=== PATIENT | male | born 1950 | race African-American/Black ===

== ENCOUNTER 2016-12-09 10:53 | Emergency (ER) | payer MEDICARE | END 2016-12-09 11:53 | disposition home or self-care (01) | LOC: D.ER 10:53 | DX: K08.89 Other specified disorders of teeth and supporting structures (principal); I10 Essential (primary) hypertension; E11.9 Type 2 diabetes mellitus without complications ==

== ENCOUNTER 2017-03-22 08:04 | Emergency (ER) | payer MEDICARE | END 2017-03-22 09:01 | disposition home or self-care (01) | LOC: D.ER 08:04 | DX: K02.9 Dental caries, unspecified (principal); K08.89 Other specified disorders of teeth and supporting structures; E11.9 Type 2 diabetes mellitus without complications; I10 Essential (primary) hypertension ==

== ENCOUNTER 2018-01-20 10:57 | Outpatient (CLI) | payer MEDICARE ==
[~2018-01-20] VITALS: Ht 182.9 cm; Wt 122.7 kg
--- NOTE | ~2018-01-20 | HEMODYNAMI ---
PATIENT:NICOL BERRIOS SR MEDICAL RECORD: [id number] : 52 LOCATION:[facility] ADMISSION DATE: 01/20/18 Generatedon:01/20/201814:28 Patient name: NICOL BERRIOS Patient #: [id number] SSN: D OB: 1950 Date of study: 01/20/2018 Page: Of Hemodynamic Procedure Report Patient Data Patient Demographics Procedure consent was obtained First Name: NICOL Gender: Male Last Name: YASH Suffix: Sr Patient #: [id number] : 1950 Age: 67 year(s) Accession #: Race: Black [id number] Additional ID: [id number] Contact details Address: [address] [place] [address] [address] State: [place] City: [place] Zip code: [address] Past Medical History Allergies: No known allergies Admission Admission Data Admission Date: 01/20/2018 Admission Time: 10:57 Height (in.): 72 BSA: 2.44 (m2) Height (cm.): 182.88 BMI: 37.3 (kg/m2) Weight (lbs.): 275 Weight (kg.): 124.74 Lab Results Lab Result Date: 01/20/2018 Lab Result Time: 0:00 Biochemistry Name Units Result Min Max BUN mg/dl 8 --(*---)-- 7 18 Creatinine mg/dl 1 --(--*-)-- 0.6 1.3 CBC Name Units Result Min Max Hemoglobin g/dl 12.4 *-(----)-- 13.5 17.5 Procedure Procedure Types Cath Procedure Diagnostic Procedure C [facility] w/Coronaries Sedation Charges Moderate Sedation up to 45 minutes PCI Procedure Coronary Stent Coronary Stent Initial Procedure Description Procedure Date Procedure Date: 01/20/2018 Procedure Start Time: 13:43 Procedure End Time: 14:25 Procedure Staff Name Function Bret Valencia MD Performing Physician Ibeth Dunlap RT Monitor Nagi Noguera RT Scrub Ruba Dolan RN Nurse Procedure Data Cath Procedure Fluoroscopy Diagnostic fluoroscopy Total fluoroscopy Time: 9.2 time: 9.2 min min Diagnostic fluoroscopy Total fluoroscopy dose: dose: 2103 mGy 2103 mGy Contrast Material Contrast Material Type Amount (ml) Isovue 300 166 Entry Location Entry Primary Successful Side Size Upsize Upsize Entry Closure Succes sful Closure Location (Fr) 1 (Fr) 2 (Fr) Remarks Device Remarks Radial Right 6 Fr artery Short Femoral Right 6 Fr Exoseal artery Short Estimated blood loss: 10 ml Diagnostic catheters Device Type Used For End Catheter Placement DIAGNOSTIC [place] 110cm 5 Procedure Fr catheter ([id number]) Procedure Complications No complications Procedure Medications Medication Administration Route Dosage 0.9% NaCl I.V. 100 ml/hr Oxygen etCO2 Nasal cannula 2 l/min Lidocaine 2% added to field 20 Heparin Flush Bag added to field 2 bags (1000units/500ml NS) Radial Cocktail added to field 1 syringe (Verapomil 2mg/Nitro 400mcg/Heparin 1500units) Versed I.V. 2 mg Fentanyl I.V. 50 mcg Versed I.V. 2 mg Fentanyl I.V. 50 mcg Versed I.V. 1 mg Heparin Bolus I.V. 4000 units Integrilin (Bolus I.V. 11.3 ml 2mg/ml) Plavix P.O. 600 mg Hemodynamics Rest BSA: 2.44 (m2) HGB: 12.4 (g/dl) O2 Consumption: Estimated: 291.82 (ml/min) O2 Co nsumption indexed: Estimated:119.6 (ml/min/m) Heart Rate: 78 (bpm) Pressure Samples Time Site Value (mmHg) Purpose Heart Use Rate(bpm) 13:47 LV 164/-27,7 Snapshot 92 13:47 AO 114/86(99) Pullback 94 13:47 LV 126/5,-1 Pullback 94 Gradients Valve Time Site 1 Site 2 Mean SEP/DFP Peak To Heart Use (mmHg) (sec/min) Peak Rate (mmHg) (bpm) Aortic 13:47 LV AO 9 19 12 94 126/5,-1 114/86(99) Calculations Valve P-P Mean Valve Index Valve Source Name Gradient Area Flow (cm2) Aortic 12 9 12 9 Snapshots Pre Cath Intra NCS Post Cath Vital Signs Time Heart Resp SPO2 etCO2 NIBP (mmHg) Rhythm Pain Sedation Rate (ipm) (%) (mmHg) Status Level (bpm) 13:11:13 75 21 96 31.4 182/109(145) NSR 0 (11) 10(A) , No pain 13:16:00 71 22 95 29.9 158/90(132) NSR 0 (11) 10(A) , No pain 13:20:45 82 21 98 16.4 140/98(121) NSR 0 (11) 10(A) , No pain 13:26:37 80 22 95 45.6 158/91(123) NSR 0 (11) 10(A) , No pain 13:31:21 77 17 98 27.6 161/88(117) NSR 0 (11) 10(A) , No pain 13:36:02 68 18 95 34.4 151/93(120) NSR 0 (11) 10(A) , No pain 13:40:43 84 16 96 32.2 146/102(111) NSR 0 (11) 10(A) , No pain 13:45:21 79 17 100 38.1 155/94(116) NSR 0 (11) 10(A) , No pain 13:49:54 88 20 98 29.1 150/112(142) NSR 0 (11) 9(A) , No pain 13:54:36 88 17 97 41.9 145/88(112) NSR 0 (11) 9(A) , No pain 13:59:19 88 20 97 28.4 156/87(124) NSR 0 (11) 9(A) , No pain 14:04:04 88 16 98 47.8 156/95(113) NSR 0 (11) 9(A) , No pain 14:08:50 89 15 96 50.1 162/96(127) NSR 0 (11) 9(A) , No pain 14:13:37 78 21 97 30.6 153/100(128) NSR 0 (11) 9(A) , No pain 14:18:22 78 21 97 38.9 154/92(121) NSR 0 (11) 9(A) , No pain 14:23:07 92 20 96 44.8 151/94(126) NSR 0 (11) 10(A) , No pain Medications Time Medication Route Dose Verified Delivered Reason Not es Effectiveness by by 12:58:43 0.9% NaCl I.V. 100 Bret Ruba used for ml/hr [place] [facility] procedure MD VALDES 12:58:51 Oxygen etCO2 2 l/min Bret Ruba used for Nasal [facility] procedure cannula MD VALDES 12:58:58 Lidocaine 2% added 20ml Bret Qeuen for local to vial [facility] anesthetic field MD IGLESIAS 12:59:03 Heparin Flush added 2 bags Bret Queen used for Bag to [facility] procedure (1000units/500ml field MD IGLESIAS NS) 13:10:50 Radial Cocktail added 1 Bret Queen used for (Verapomil to syringe [facility] procedure 2mg/Nitro field MD IGLESIAS 400mcg/Heparin 1500units) 13:31:51 Versed I.V. 2 mg Bret Ruba for sedation [facility] Dolan MD RN 13:31:55 Fentanyl I.V. 50 mcg Bret Ruba for sedation [facility] Dolan MD RN 13:42:42 Versed I.V. 2 mg Bret Ruba for sedation [facility] D[facility] MD, RN 13:42:49 Fentanyl I.V. 50 mcg Bret Ruba for sedation [facility] D[facility] MD RN 13:46:31 Versed I.V. 1 mg Bret Ruba for sedation [facility] D[facility] MD RN 14:00:58 Heparin Bolus I.V. 4000 Bret Ruba for jessee ified units [facility] anticoagulation with Dr. MD VALDES [place] 14:03:22 Integrilin I.V. 11.3 ml Bret Ruba for was anaya (Bolus 2mg/ml) [facility] anticoagulation 8.7 mL MD VALDES 14:06:41 Plavix P.O. 600 mg Bret Ruba for [facility] antiplatelet RN therapy Procedure Log Time Note 12:56:53 Nagi Noguera RT(R) sent for patient. Start room use. 12:56:54 Time tracking: Regular hours (M-F 7:00 - 5:00) 12:56:59 Plan of Care:Hemodynamics will remain stable., Cardiac rhythm will remain stable., Comfort level will be maintained., Respiratory function will remain adequate., Patient/ family verbilizes understanding of procedure., Procedure tolerated without complication., Recovers from procedure without complications.. 12:57:02 Signed procedure consent form obtained from patient. 12:57:53 Patient allergic to No known allergies 12:58:43 0.9% NaCl 100 ml/hr I.V. was administered by Ruba Dolan RN; used for procedure; 12:58:51 Oxygen 2 l/min etCO2 Nasal cannula was administered by Ruba Dolan RN; used for procedure; 12:58:58 Lidocaine 2% 20ml vial added to field was administered by Bret Valencia MD; for local anesthetic; 12:59:03 Heparin Flush Bag (1000units/500ml NS) 2 bags added to field was administered by Bret Valencia MD; used for procedure; 13:02:11 Patient received from Pre/Post Procedure Room to CCL 1 Alert and oriented. Tansferred to table in Supine position. 13:02:12 Warm blankets applied, and tammy hugger turned on for patient comfort. 13:02:12 Correct patient and procedure confirmed by team. 13:02:13 ECG and BP/O2 sat monitors applied to patient. 13:09:22 Vital chart was started 13:10:50 Radial Cocktail (Verapomil 2mg/Nitro 400mcg/Heparin 1500units) 1 syringe added to field was administered by Bret Valencia MD; used for procedure; 13:16:35 Baseline sample Acquired. 13:16:42 Rhythm: sinus rhythm 13:16:42 Full Disclosure recording started 13:16:49 H&P Date Dictated: 01/15/2018 Within 30 days and on chart., H&P Addendum completed by physician on day of procedure. (MUST COMPLETE FOR ALL OUTPATIENTS). 13:16:50 Pre-procedure instructions explained to patient. 13:16:50 Pre-op teaching completed and patient verbalized understanding. 13:16:51 Family in patients room. 13:16:53 Patient NPO since Midnight. 13:17:14 Is the patient allergic to Iodine/contrast media? No. 13:17:16 Is patient on blood thinner?No 13:17:19 Patient diabetic? Yes. 13:17:20 If diabetic: On Metformin? Yes 13:17:24 If on Metformin: Last Dose? 01/18/2018 13:17:28 Previous problem with sedation/anesthesia? No ? 13:17:29 Snore? Yes 13:17:30 Sleep apnea? Yes 13:17:31 Deviated septum? No 13:17:32 Opens mouth fully? Yes 13:17:35 Opens mouth fully? Yes 13:17:36 Sticks out tongue? Yes 13:17:45 Airway obstruction? Yes ASBESTOSIS 13:17:49 Dentures? Yes IN TIGHT 13:17:52 Modified Jorge's test Ulnar < 7 seconds 13:17:56 Patient pain scale 0/10 ?. 13:18:05 SHORTNESS OF BREATH 13:18:11 IV patent on arrival in left hand with 0.9% NaCl at [facility]. 13:18:37 Lab Result : BUN 8 mg/dl 13:18:37 Lab Result : Hemoglobin 12.4 g/dl 13:18:37 Lab Result : Creatinine 1 mg/dl 13:18:40 Lab results completed and on chart. 13:18:44 Right Radial & Right Groin area was prepped with chlora-prep and draped in sterile fashion 13:19:08 Patient Height : 72 inches 13:19:12 Patient Weight : 275 lbs 13:20:42 Use device set Radial Dx or PCI 13:20:43 ACIST Syringe (85788) opened to sterile field. 13:20:45 Bag Decanter (2002S) opened to sterile field. 13:20:46 ACIST Hand Control (23136) opened to sterile field. 13:20:47 ACIST Manifold (93384) opened to sterile field. 13:20:48 Tegaderm 4 x 4 (1626W) opened to sterile field. 13:20:51 Medline Cath Pack ([id number]) opened to sterile field. 13:20:52 DIAGNOSTIC WIRE .035 260cm J wire (730282) opened to sterile field. 13:20:52 MBrace Wrist Support ([id number]) opened to sterile field. 13:20:54 SHEATH 6Fr Prelude Radial ([id number]) opened to sterile field. 13:31:41 --------ALL STOP TIME OUT------ 13:31:42 Final Timeout: patient, procedure, and site verified with staff and physician. All members of the team are in agreement. 13:31:44 Right Radial & Right Groin site verified by team. 13:31:46 Physical assessment completed. ASA score P 2 - A patient with mild systemic disease as per Bret Valencia MD. 13:31:49 Sedation plan: IV Moderate Sedation Medication:Versed, Fentanyl 13::51 Versed 2 mg I.V. was administered by Ruba Dolan RN; for sedation; 13::55 Fentanyl 50 mcg I.V. was administered by Ruba Dolan RN; for sedation; 13:42:42 Versed 2 mg I.V. was administered by Ruba Dolna RN; for sedation; 13:42:49 Fentanyl 50 mcg I.V. was administered by Ruba Dolan RN; for sedation; 13:43:08 Zero performed for pressure channel P1 13:43:18 Procedure started. 13:43:37 Local anesthetic to right radial artery with Lidocaine 2% by Bret Valencia MD.INITIAL ACCESS ONLY 13:44:23 A 6 Fr Short sheath was inserted into the Right Radial artery 13:44:50 A DIAGNOSTIC [place] 110cm 5 Fr catheter (153838) was advanced over the wire and used for Procedure. 13:46:15 LV gram done using PADILLA 13:46:17 Injector settings: Ml/sec: 5, Volume: 15, 13:46:31 Versed 1 mg I.V. was administered by Ruba Dolan RN; for sedation; 13:47:29 LV hemodynamics recorded. 13:47:53 EF : 45 % 13:49:15 RCA angiography performed. 13:51:44 LCA angiography performed. 13:51:45 Catheter exchanged over wire. 13:52:49 GUIDE 6FR EBU 3.5 catheter (PK1HFE07) opened to sterile field. 13:52:58 6 Fr EBU 3.5 guide catheter was inserted over the wire 13:58:34 LCA angiography performed. 13:58:41 Guide catheter removed. 14:00:14 SHEATH 6FR [place] (XWX105) opened to sterile field. 14:00:28 WILL PROCEED TO GO FEMORAL TO FIX RCA 14:00:38 Local anesthetic to right femoral artery with Lidocaine 2% by Bret Valencia MD.ADDITIONAL ACCESS 14:00:45 A 6 Fr Short sheath was inserted into the Right Femoral artery 14:00:58 Heparin Bolus 4000 units I.V. was administered by Ruba Dolan RN; for anticoagulation; verified with Dr. Bundy 14:01:03 INFLATOR Merit Live Life 360Lorne (MT6221) opened to sterile field. 14:01:04 WHISPER 300cm guide wire ([id number]) opened to sterile field. 14:01:04 GUIDE 6FR HS I catheter (LA6HSI) opened to sterile field. 14:02:26 6 Fr HS 1 guide catheter was inserted over the wire 14:03:22 Integrilin (Bolus 2mg/ml) 11.3 ml I.V. was administered by Ruba Dolan RN; for anticoagulation; wasted 8.7 mL 14:05:36 WHISPER 300 wire advanced. 14:06:33 Wire advanced across lesion. 14:06:41 Plavix 600 mg P.O. was administered by Ruba Dolan RN; for antiplatelet therapy; 14:10:34 Place stent Inflation Number: 1 A NOY RX 3.5 x 26 stent ([id number]) was prepped and advanced across the Dist RCA. The stent was deployed at 14 TREVOR for 0:15 (min:sec). 14:11:13 Inflation number: 2 The stent balloon was then re-inflated across the Dist RCA to 14 TREVOR for 0:05 (min:sec). 14:11:24 Stent catheter was removed intact over wire. 14:14:48 Place stent Inflation Number: 1 A NOY RX 3.5 x 26 stent ([id number]) was prepped and advanced across the Mid RCA. The stent was deployed at 14 TREVOR for 0:20 (min:sec). 14:15:01 Stent catheter was removed intact over wire. 14:18:20 Place stent Inflation Number: 2 A NOY OTW 3.5 x 18 stent ([id number]) was prepped and advanced across the Mid RCA. The stent was deployed at 14 TREVOR for 0:15 (min:sec). 14:18:59 Stent catheter was removed intact over wire. 14:19:00 Wire removed. 14:19:00 Guide catheter removed. 14:19:07 EXOSEAL 6Fr (EX600) opened to sterile field. 14:19:47 Sheath removed intact; hemostasis achieved with Exoseal to the Right Femoral artery. 14:20:00 Procedure ended.(Physican Out) 14:20:14 TR BAND Large ([id number]) opened to sterile field. 14:20:22 Fluoroscopy time 09.20 minutes. 14:20:38 Contrast amount:Isovue 300 166ml. 14:20:45 Fluoroscopy dose: 2103 mGy 14:20:45 Flurop Dose total: 2103 14:20:47 Sharps counted by scrub and verified by R.N. 14:20:50 Post-op/insertion site Right Femoral artery dressed using a 4 x 4 and Tegaderm. 14:20:54 Post right femoral artery:stable, soft, clean and dry 14:23:42 Post-procedure physical assessment completed. ASA score P 2 - A patient with mild systemic disease as per Bret Valencia MD. 14:23:45 Post procedure rhythm: unchanged. 14:23:47 Estimated blood loss: 10 ml 14:23:49 Post procedure instruction explained to patient.Patient verbalizes understanding. 14:23:49 Patient needs reinforcement of post procedure teaching. 14:24:31 Procedure type changed to Cath procedure, Diagnostic procedure, LHC, LHC w/Coronaries, Sedation Charges, Moderate Sedation up to 45 minutes, PCI procedure, Coronary Stent, Coronary Stent Initial 14:24:38 TR band inflated with 11cc of air. 14:25:07 Procedure and supply charges have been captured, reviewed, submitted and are correct. 14:25:09 Procedure Complication : No complications 14:25:11 Vital chart was stopped 14:25:11 See physician's report for complete and final results. 14:25:13 Report given to Pre/Post Procedure Room. 14:25:21 Patient transfered to Pre/Post Procedure Room with Bed. 14:25:23 Procedure ended. 14:25:23 Full Disclosure recording stopped 14:25:27 End room use (Document Last) Intervention Summary Intervention Notes Time ActionType Lesion and Equipment Used Action# Pressure Duration Attributes 14:10:34 Place stent Dist RCA NOY RX 3.5 x 1 14 00:15 26 stent ([id number]) 14:11:13 Reinflate Dist RCA NOY RX 3.5 x 2 14 00:05 stent 26 stent balloon ([id number]) 14:14:48 Place stent Mid RCA NOY RX 3.5 x 1 14 00:20 26 stent ([id number]) 14:18:20 Place stent Mid RCA NOY OTW 3.5 x 2 14 00:15 18 stent ([id number]) Device Usage Item Name Manufacture Quantity Catalog Number Hospital Part Current Minimal Lot# / Charge Number Stock Stock Serial# Code ACIST Syringe Acist 1 08088 262792 245166 572625 20 (26635) Medical Systems [facility] Bag Decanter Microtek 1 2001S 562052 76736 726768 5 (2001S) Medical Inc. ACIST Hand Acist 1 40326 360182 044365 334105 5 Control (42237) Medical Systems Inc ACIST Manifold Acist 1 54815 348559 825903 418321 5 (07240) Medical Systems Inc Tegaderm 4 x 4 3M 1 1626W 143909 301049 819273 5 (1626W) Medline Cath Medline 1 [id number] 878288 05330 824486 5 Pack ([id number]) DIAGNOSTIC WIRE St Dwight 1 701378 545723 674289 922596 30 .035 260cm J wire (983286) MBrace Wrist Advanced 1 140-0250-00 963978 10357 442029 5 Support Vascular ([id number]) Dynamics SHEATH 6Fr Merit 1 [id number] 136163 058360 171219 5 Prelude Radial Medical ([id number]) DIAGNOSTIC Terumo 1 40-3303 773946 081203 030089 5 [place] 110cm 5 Fr catheter (046476) GUIDE 6FR EBU Medtronic 1 [id number] 973052 13746 697684 3 3.5 catheter ([id number]) SHEATH 6FR Terumo 1 HXA481 948260 128150 512506 40 [place] (RGG687) INFLATOR Merit Merit 1 PY1415 875247 233545 835708 15 ADENTS [facility] (JR9793) WHISPER 300cm Vinson 1 [id number] 335191 519407 004180 5 guide wire Vascular ([id number]) GUIDE 6FR HS I Medtronic 1 LA6HSI 056618 17310 224914 1 catheter (LA6HSI) NOY RX 3.5 x Medtronic 2 [id number] 285105 6057365 882053 5 [id number] 26 stent [id number] ([id number]) NOY OTW 3.5 x Medtronic 1 [id number] 190855 6303622 480669 5 [id number] 18 stent ([id number]) EXOSEAL 6Fr Cardinal 1 EX600 112708 360341 841478 10 (EX600) Health TR BAND Large Terumo 1 [id number] 475547 872431 992354 40 ([id number]) Signature Audit [place] Stage Time Signature Unsigned Intra-Procedure 01/20/2018 Ibeth Dunlap 2:28:53 PM RT(R) Signatures Monitor : Ibeth Dunlap Signature : RT Date : Time : [id number] [place] [address]
--- NOTE | ~2018-01-20 | OP ---
PATIENT NAME: NICOL BERRIOS SR MEDICAL RECORD: [id number] :52 LOCATION:D.CAT ADMISSION DATE: SURGEON: GIUSEPPE LUCAS MD DATE OF OPERATION: 01/20/2018 PROCEDURES: Left heart catheterization, selective coronary angiography, right femoral artery approach. CATHETERS: A 5-[place] sheath, 5/4 left and right Deepak, 5/4 pig. The procedure was well tolerated. The patient was returned to the uribe. Sheath was removed. ExoSeal device was placed. FINDINGS: Left ventriculography in 30-degree PADILLA view shows global LV hypokinesis with reduced EF. Estimated EF 40%. CORONARY ANATOMY: LEFT MAIN: Left main is free of disease. LAD: Patent down to the apex. The very distal tip of the apex has about diffuse 70% stenosis, not amenable to intervention. CIRCUMFLEX: Circumflex has one large OM almost ramoid territory branch about a 30% stenosis at a bend. Circumflex itself shows luminal irregularities. RIGHT CORONARY: It has severe diffuse typical diabetic disease in the RV branch down to the bifurcation of PD and PL branches. IMPRESSION AND PLAN: Intervention the right coronary momentarily. DESCRIPTION OF PROCEDURE: A 5-[place] sheath was exchanged for a 6-[place] sheath. Hockey stick guide catheter provided good catheter support followed by 300-cm Whisper wire which was placed across the diffuse stenosis down this portion of vessel. Stents deployed were 3.5 x 26, 3.5 x 26, and 3.5 x 18; all Delbert drug-eluting stents up to 14 atmospheres. Final angiography shows excellent resolution of severe diffuse stenosis of 80% with no significant residual. GAYATRI flow was 3 throughout the procedure. Integrilin was used during the case. Sheath was closed with ExoSeal device. Plavix was loaded in the lab. TRANSINT:[id number] Voice Confirmation ID: [id number] DOCUMENT ID: [id number] GIUSEPPE LUCAS MD CC: [id number] DICTATION DATE: 01/20/18 1431 AIR DIRECTOR: 01/20/18 1622 DEP CLI 01/20/18 [facility] [address] [place] [address]
[2018-01-20 12:26] VITALS: BP 165/94
[2018-01-20 12:32] VITALS: Ht 182.9 cm; Wt 122.7 kg
[2018-01-20] MEDS ORDERED: ZESTRIL40 MG PO (12:35)
[2018-01-20] MEDS ORDERED: FLOMAX0.4 MG PO (12:35)
[2018-01-20 12:36] LABS: BASOPHILS 0.2 % (0-2); EOSINOPHILS 1.5 % (0-7); HEMATOCRIT 36.9 % (42.0-54.0); HEMOGLOBIN 12.4 g/dL (13.5-17.5); IMMATURE GRANULOCYTES 0.2 % (0-5); LYMPHOCYTES 37.5 % (15-50); MCHC 33.6 g/dL (31.0-37.0); MCV 89.1 fL (80.0-100.0); MEAN PLATELET VOLUME 8.7 fL (7.4-10.4); MONOCYTES 9.5 % (2-11); NEUTROPHILS 51.1 % (40-80); PLATELET COUNT 241 10x3/uL (130-400); RBC 4.14 10x6/uL (4.20-6.10); RDW 15.4 % (11.5-14.5); WBC 5.4 10x3/uL (4.8-10.8)
[2018-01-20] MEDS ORDERED: GLIPIZIDE10 MG PO (12:36)
[2018-01-20] MEDS ORDERED: FUROSEMIDE20 MG PO (12:36)
[2018-01-20] MEDS ORDERED: GLUCOPHAGE500 MG PO (12:37)
[2018-01-20] MEDS ORDERED: PRAVACHOL40 MG PO (12:37)
[2018-01-20] MEDS ORDERED: GLUCOPHAGE1000 MG PO (12:38)
[2018-01-20] MEDS ORDERED: RANEXA500 MG PO (12:38)
[2018-01-20 12:43] LABS: CALC OSMOLALITY 283 mosm/kg (275-300); CALCIUM 8.8 mg/dL (8.5-10.1); CARBON DIOXIDE 27.5 mmol/L (21.0-32.0); CHLORIDE - SERUM 104 mmol/L (98-107); GLUCOSE 190 mg/dL (74-106); POTASSIUM - SERUM 3.5 mmol/L (3.5-5.1); SODIUM 141 mmol/L (136-145); UREA NITROGEN 8 mg/dL (7-18); eGFR NON AFRICAN AMERICAN 79 mL/min (90-120)
== END 2018-01-20 18:55 | disposition home or self-care (01) ==
LOC: D.CATH 10:57
PROVIDERS: Internal Medicine Interventional Cardiology
DX: I25.119 Atherosclerotic heart disease of native coronary artery with unspecified angina pectoris (principal); Z01.812 Encounter for preprocedural laboratory examination; E11.9 Type 2 diabetes mellitus without complications
CPT/HCPCS: 93458; C9600

== ENCOUNTER 2018-09-29 01:44 | Inpatient (IN) | payer MEDICARE ==
[~2018-09-29] VITALS: Ht 182.9 cm; Wt 120.5 kg
[2018-09-29] VITALS (7 sets, daily range): BP systolic 129–177; BP diastolic 58–109; Ht 182.9 cm; Wt 120.5 kg
--- NOTE | ~2018-09-29 | HEMODYNAMI ---
PATIENT:NICOL BERRIOS SR MEDICAL RECORD: [id number] : 52 LOCATION:[facility] D.2134 [facility]# [id number] ADMISSION DATE: 09/29/18 Generatedon:09/30/201810:10 Patient name: NICOL BERRIOS Patient #: [id number] SSN: D OB: 1950 Date of study: 09/30/2018 Page: Of Hemodynamic Procedure Report Patient Data Patient Demographics Procedure consent was obtained First Name: NICOL Gender: Male Last Name: YASH Suffix: Sr Patient #: [id number] : 1950 Age: 67 year(s) Accession #: Race: Black [id number] Additional ID: [id number] Contact details Address: [address] [place] [address] ROAD State: [place] City: [place] Zip code: [address] Past Medical History Allergies: No known allergies Admission Admission Data Admission Date: 09/29/2018 Admission Time: 4:54 Room #: D.2134 Weight (lbs.): 264.56 Weight (kg.): 120 Lab Results Lab Result Date: 09/30/2018 Lab Result Time: 0:00 Biochemistry Name Units Result Min Max BUN mg/dl 15 --(--*-)-- 7 18 Creatinine mg/dl 1.2 --(---*)-- 0.6 1.3 eGFR ml/min 78 *-(----)-- 90 120 AM CBC Name Units Result Min Max Hematocrit % 36.8 *-(----)-- 42 54 Hemoglobin g/dl 12.4 *-(----)-- 13.5 17.5 Procedure Procedure Types Cath Procedure Diagnostic Procedure [facility] w/Coronaries FFR/IVUS FFR Initial Sedation Charges Moderate Sedation up to 15 minutes PCI Procedure Coronary Stent Coronary Stent Initial Procedure Description Procedure Date Procedure Date: 09/30/2018 Procedure Start Time: 9:38 Procedure End Time: 10:07 Procedure Staff Name Function Alexandru Isbell MD Performing Physician Ruba Dolan RN Nurse Jose Overton RT Scrub Sherie Chester RT Scrub Ibeth Dunlap RT Monitor Procedure Data Cath Procedure Fluoroscopy Diagnostic fluoroscopy Total fluoroscopy Time: 9.9 time: 9.9 min min Diagnostic fluoroscopy Total fluoroscopy dose: dose: 2451 mGy 2451 mGy Contrast Material Contrast Material Type Amount (ml) Isovue 300 168 Entry Location Entry Primary Successful Side Size Upsize Upsize Entry Closure Succes sful Closure Location (Fr) 1 (Fr) 2 (Fr) Remarks Device Remarks Femoral Right 5 Fr 6 Fr Exoseal artery Short Estimated blood loss: 10 ml Diagnostic catheters Device Type Used For End Catheter Placement MULTIPACK Pigtail 5 Fr Procedure catheter MULTIPACK JL 4.0 5Fr Procedure catheter MULTIPACK 3DRC 5Fr Procedure catheter Procedure Complications No complications Procedure Medications Medication Administration Route Dosage 0.9% NaCl I.V. 100 ml/hr Oxygen etCO2 Nasal cannula 2 l/min Lidocaine 2% added to field 20 Heparin Flush Bag added to field 2 bags (1000units/500ml NS) Versed I.V. 2 mg Fentanyl I.V. 50 mcg Heparin Bolus I.V. 5000 units Fentanyl I.V. 50 mcg Plavix P.O. 75 mg Hemodynamics Rest HGB: 12.4 (g/dl) Heart Rate: 100 (bpm) Snapshots Pre Cath Intra NCS Post Cath Vital Signs Time Heart Resp SPO2 etCO2 NIBP (mmHg) Rhythm Pain Sedation Rate (ipm) (%) (mmHg) Status Level (bpm) 9:19:40 98 17 97 12 167/102(142) NSR 0 (11) 10(A) , No pain 9:24:13 91 18 100 14 185/94(110) NSR 0 (11) 10(A) , No pain 9:28:39 93 16 100 3.7 129/95(113) NSR 0 (11) 10(A) , No pain 9:33:38 83 14 97 23.2 Measuring NSR 0 (11) 10(A) , No pain 9:33:48 69 15 96 27.7 147/112(130) NSR 0 (11) 10(A) , No pain 9:38:47 84 17 98 16.4 Measuring NSR 0 (11) 10(A) , No pain 9:38:53 74 17 98 12.7 150/107(125) NSR 0 (11) 10(A) , No pain 9:43:07 89 15 98 30 130/96(125) NSR 0 (11) 9(A) , No pain 9:47:24 81 16 98 29.2 149/108(128) NSR 0 (11) 9(A) , No pain 9:51:48 83 16 96 32.9 147/90(122) NSR 0 (11) 9(A) , No pain 9:56:14 85 15 99 17.9 152/86(118) NSR 0 (11) 9(A) , No pain 10:00:38 88 18 98 32.2 154/93(122) NSR 0 (11) 10(A) , No pain 10:05:05 85 19 95 32.2 159/93(117) NSR 0 (11) 10(A) , No pain Medications Time Medication Route Dose Verified Delivered Reason Notes Effectiveness by by 9:18:25 0.9% NaCl I.V. 100 Alexandru Ruba used for ml/hr Sukhi Dolan reconciliation specialist 9:18:31 Oxygen etCO2 2 Alexandru Ruba used for Nasal l/min Sukhi Dolan procedure cannula RN 9:18:37 Lidocaine 2% added 20ml Alexandru Alexandru for local to vial Sukhi Isbell MD anesthetic field 9:18:41 Heparin Flush added 2 Alexandru Alexandru used for Bag to bags Sukhi Isbell MD procedure (1000units/500ml field NS) 9:36:00 Versed I.V. 2 mg Alexandru Ruba for sedation Sukhi Dolan RN 9:36:06 Fentanyl I.V. 50 Alexandru Ruba for sedation mcg Sukhi Dolan RN 9:41:17 Fentanyl I.V. 50 Alexandru Ruba for sedation mcg Sukhi Dolan RN 9:44:59 Heparin Bolus I.V. 5000 Alexandru Ruba for verifi ed units Sukhi Dolan anticoagulation with Dr. KEISHA Isbell 9:46:04 Plavix P.O. 75 mg Alexandru Ruba for Sukhi Dolan antiplatelet RN therapy Procedure Log Time Note 9:01:01 Signed procedure consent form obtained from patient. 9:01:03 Diagnostic Cath status Urgent 9:01:04 Time tracking: Regular hours (M-F 7:00 - 5:00) 9:01:10 Plan of Care:Hemodynamics will remain stable., Cardiac rhythm will remain stable., Comfort level will be maintained., Respiratory function will remain adequate., Patient/ family verbilizes understanding of procedure., Procedure tolerated without complication., Recovers from procedure without complications.. 9:01:13 Perez Cloud RT(R) (CV) sent for patient. Start room use. 9:03:25 Patient allergic to No known allergies 9:04: Lab Result : BUN 15 mg/dl 9:: Lab Result : Creatinine 1.2 mg/dl 9:: Lab Result : Hemoglobin 12.4 g/dl 9:: Lab Result : eGFR AM 78 ml/min 9:04: Lab Result : Hematocrit 36.8 % 9:05:11 Patient Weight : 264.56 lbs 9:12:54 Patient received from Med II to CCL 1 Alert and oriented. Tansferred to table in Supine position. 9:12:55 Warm blankets applied, and tammy hugger turned on for patient comfort. 9:12:55 Correct patient and procedure confirmed by team. 9:12:56 ECG and BP/O2 sat monitors applied to patient. 9:18:17 Vital chart was started 9:18:25 0.9% NaCl 100 ml/hr I.V. was administered by Ruba Dolan RN; used for procedure; 9:18:31 Oxygen 2 l/min etCO2 Nasal cannula was administered by Ruba Dolan RN; used for procedure; 9:18:37 Lidocaine 2% 20ml vial added to field was administered by Alexandru Isbell MD; for local anesthetic; 9:18:41 Heparin Flush Bag (1000units/500ml NS) 2 bags added to field was administered by Alexandru Isbell MD; used for procedure; 9:21:07 Baseline sample Acquired. 9:21:09 Rhythm: sinus rhythm 9:21:14 Full Disclosure recording started 9:21:15 Pre-procedure instructions explained to patient. 9:21:16 Pre-op teaching completed and patient verbalized understanding. 9:21:17 Family in patients room. 9:21:19 Patient NPO since Midnight. 9:21:24 Is patient on blood thinner?Yes 9:21:33 PRELOADED ON PLAVIX 9:21:35 Patient diabetic? No. 9:21:39 Previous problem with sedation/anesthesia? No ? 9:21:40 Snore? Yes 9:21:41 Sleep apnea? Yes 9:21:41 Deviated septum? No 9:21:42 Opens mouth fully? Yes 9:21:43 Sticks out tongue? Yes 9:21:45 Airway obstruction? No ? 9:21:48 Dentures? Yes PARTIAL IN 9:21:52 Pre procedure: right dorsailis pedis pulse 1+ Palpable, but thready & weak; easily obliterated 9:21:55 Patient pain scale 0/10 ?. 9:22:02 IV patent on arrival in right antecubital with 0.9% NaCl at [facility]. 9:22:04 Lab results completed and on chart. 9:22:07 Right groin area was prepped with chlora-prep and draped in sterile fashion 9:22:08 Alarms reviewed by R. N. 9:22:08 Sharps counted by scrub and verified by R.N. 9:22:11 Use device set Femoral Dx 9:22:11 ACIST Syringe (79857) opened to sterile field. 9:22:12 Bag Decanter (2002S) opened to sterile field. 9:22:13 ACIST Hand Control (32032) opened to sterile field. 9:22:13 ACIST Manifold (51689) opened to sterile field. 9:22:14 Tegaderm 4 x 4 (1626W) opened to sterile field. 9:22:16 Medline Cath Pack ([id number]) opened to sterile field. 9:22:17 DIAGNOSTIC Multipack 5Fr catheter set ([id number]) opened to sterile field. 9:22:21 SHEATH 5FR [place] ([id number]) opened to sterile field. 9:22:21 EMERALD Guide Wire (323-545) opened to sterile field. 9:35:20 --------ALL STOP TIME OUT------ 9:35:20 Final Timeout: patient, procedure, and site verified with staff and physician. All members of the team are in agreement. 9:35:21 Right groin site verified by team. 9:35:25 Fire Safety Assessment: A--An alcohol-based skin anteseptic being used preoperatively., C--Open oxygen or nitrous oxide is being used., D--An ESU, laser, or fiber-optic light is being used. 9:35:29 Physical assessment completed. ASA score P 2 - A patient with mild systemic disease as per Alexandru Isbell MD. 9:35:35 2) 60-89 Mildly reduced kidney function, and other findings (as for stage 1) point to kidney disease. 9:35:40 Maximum allowable contrast does (3.7 X eGFR X 0.75)216 ml. 9:35:43 Sedation plan: IV Moderate Sedation Medication:Versed, Fentanyl 9:36:00 Versed 2 mg I.V. was administered by Ruba Dolan RN; for sedation; 9:36:06 Fentanyl 50 mcg I.V. was administered by Ruba Dolan RN; for sedation; 9:38:22 Procedure started. 9:38:27 Local anesthetic to right femoral artery with Lidocaine 2% by Alexandru Isbell MD.INITIAL ACCESS ONLY 9:38:36 A 5 Fr sheath was inserted into the Right Femoral artery 9:39:06 Zero performed for pressure channel P1 9:39:12 A MULTIPACK Pigtail 5 Fr catheter was advanced over the wire and used for Procedure. 9:39:16 Zero performed for pressure channel P1 9:39:24 Zero performed for pressure channel P1 9:39:40 LV gram done using PADILLA 9:39:43 Injector settings: Ml/sec: 10, Volume: 20, 9:40:00 EF : 30 % 9:40:02 Catheter removed. 9:40:10 A MULTIPACK JL 4.0 5Fr catheter was advanced over the wire and used for Procedure. 9:41:17 Fentanyl 50 mcg I.V. was administered by Ruba Dolan RN; for sedation; 9:41:39 LCA angiography performed. 9:41:42 Catheter removed. 9:42:21 A MULTIPACK 3DRC 5Fr catheter was advanced over the wire and used for Procedure. 9:43:14 RCA angiography performed. 9:43:27 Catheter removed. 9:43:35 SHEATH 6FR [place] ([id number]) opened to sterile field. 9:43:36 INFLATOR Merit BasixCompak (FC5428) opened to sterile field. 9:43:36 [place] Verrata Plus pressure wire (55099L) opened to sterile field. 9:43:54 GUIDE 6FR XBLAD 4.0 catheter ([id number]) opened to sterile field. 9:44:02 Sheath upsized to a 6 Fr Short. 9:44:42 6 Fr XBLAD 4 guide catheter was inserted over the wire 9:44:59 Heparin Bolus 5000 units I.V. was administered by Ruba Dolan RN; for anticoagulation; verified with Dr. Isbell 9:46:04 Plavix 75 mg P.O. was administered by Ruba Dolan RN; for antiplatelet therapy; 9:46:11 FFR/IFR wire advanced. 9:46:31 Wire advanced across lesion. 9:47:03 pLAD lesion measured at .80 with IFR 9:48:36 Wire removed. 9:48:48 CHOICE PT Extra Support 182cm wire ([id number]) opened to sterile field. 9:49:06 CHOICE ES 182 wire advanced. 9:50:32 Place stent Inflation Number: 1 A NOY RX 2.5 x 26 stent ([id number]) was prepped and advanced across the Mid LAD . The stent was deployed at 17 TREVOR for 0:10 (min:sec) . 9:50:45 Stent catheter was removed intact over wire. 9:50:46 Wire removed. 9:50:48 Guide catheter removed. 9:50:58 GUIDE 6FR MB 2 catheter (LA6MB2) opened to sterile field. 9:51:09 CHOICE PT Extra Support 182cm wire ([id number]) opened to sterile field. 9:51:16 6 Fr MB 2 guide catheter was inserted over the wire 9:52:24 CHOICE ES 182 wire advanced. 9:55:59 Wire removed. 9:56:03 CHOICE PT Extra Support 182cm wire ([id number]) opened to sterile field. 9:56:14 CHOICE ES 182 wire advanced. 9:58:38 Wire removed. 9:58:46 WHISPER 300cm guide wire ([id number]) opened to sterile field. 10:01:19 WHISPER 300 wire advanced. 10:01:21 Wire advanced across lesion. 10:02:55 The EMERGE OTW 2.0 x 15 balloon ([id number]) was advanced and then removed because of failure to cross lesion 10:03:00 Balloon removed over the wire. 10:03:00 Wire removed. 10:03:01 Guide catheter removed. 10:03:15 EXOSEAL 6Fr (EX600) opened to sterile field. 10:03:44 Sheath removed intact; hemostasis achieved with Exoseal to the Right Femoral artery. 10:03:47 Procedure ended.(Physican Out) 10:04:05 Fluoroscopy time 09.90 minutes. 10:04:11 Fluoroscopy dose: 2451 mGy 10:04:11 Flurop Dose total: 2451 10:04:17 Contrast amount:Isovue 300 168ml. 10:04:18 Sharps counted by scrub and verified by R.N. 10:04:21 Post-op/insertion site Right Femoral artery dressed using a 4 x 4 and Tegaderm. 10:04:26 Post-procedure physical assessment completed. ASA score P 2 - A patient with mild systemic disease as per Alexandru Isbell MD. 10:04:30 Post procedure rhythm: unchanged. 10:04:39 Estimated blood loss: 10 ml 10:04:40 Post procedure instruction explained to patient.Patient verbalizes understanding. 10:04:40 Patient needs reinforcement of post procedure teaching. 10:05:18 Procedure type changed to Cath procedure, Diagnostic procedure, LHC, LHC w/Coronaries, FFR/IVUS, FFR Initial, Sedation Charges, Moderate Sedation up to 15 minutes, PCI procedure, Coronary Stent, Coronary Stent Initial 10:07:20 Procedure and supply charges have been captured, reviewed, submitted and are correct. 10:07:23 Procedure Complication : No complications 10:07:25 Vital chart was stopped 10:07:26 See physician's report for complete and final results. 10:07:28 Report given to [facility]. 10:07:30 Patient transfered to [facility] with Bed. 10:07:32 Procedure ended. 10:07:32 Full Disclosure recording stopped 10:07:35 End room use (Document Last) Intervention Summary Intervention Notes Time ActionType Lesion and Equipment Used Action# Pressure Duration Attributes 9:50:32 Place stent Mid LAD NOY RX 2.5 x 1 17 00:10 26 stent ([id number]) 10:02:55 Discard EMERGE OTW 2.0 Balloon x 15 balloon ([id number]) Device Usage Item Name Manufacture Quantity Catalog Number Hospital Part Current Minimal Lot# / Charge Number Stock Stock Serial# Code ACIST Syringe Acist 1 28703 730138 735641 194227 20 (67301) Medical Systems Inc Bag Decanter Microtek 1 2001S 119372 09792 786260 5 (2001S) Medical Inc. ACIST Hand Acist 1 72877 349017 099571 784847 5 Control Medical (81020) Systems Inc ACIST Manifold Acist 1 59262 083867 560678 996640 5 (81724) Medical Systems Inc Tegaderm 4 x 4 3M 1 1626W 403512 436856 949783 5 (1626W) Medline Cath Medline 1 [id number] 619955 13225 554308 5 Pack ([id number]) DIAGNOSTIC Cardinal 1 SH9637 044121 49410 413970 30 Multipack 5Fr Health catheter set (XY1778) SHEATH 5FR Terumo 1 OYY756 092626 746994 203346 5 [place] (LGQ442) EMERALD Guide Cardinal 1 502-455 337126 402045 188701 5 Wire (502-455) Health MULTIPACK Cardinal 1 716249 5 Pigtail 5 Fr Health catheter MULTIPACK JL Cardinal 1 841050 5 4.0 5Fr Health catheter MULTIPACK 3DRC Cardinal 1 346965 5 5Fr catheter Health SHEATH 6FR Terumo 1 VXU029 326708 240434 545082 40 [place] (NTT746) INFLATOR Merit Merit 1 BI3926 365973 820150 229011 15 [facility] (TA3456) Bagdad Bagdad 1 30508J 257885 518448612 977734 5 Verrata Plus pressure wire (89426Y) GUIDE 6FR Cardinal 1 [id number] 852820 433623 250836 3 XBLAD 4.0 Health catheter (67261310) CHOICE PT Hendricks 3 [id number] 267415 603777 911630 5 Extra Support Scientific 182cm wire (0306823M8) NOY RX 2.5 x Medtronic 1 [id number] 487291 6786997 717023 5 [id number] 26 stent ([id number]) GUIDE 6FR MB 2 Medtronic 1 LA6MB2 193416 41552 548387 1 catheter (LA6MB2) WHISPER 300cm Vinson 1 [id number] 346382 144128 272494 5 guide wire Vascular ([id number]) EMERGE OTW 2.0 Hendricks 1 [id number] 877765 841040 009103 5 [id number] x 15 balloon Scientific ([id number]) EXOSEAL 6Fr Cardinal 1 EX600 693508 415511 854145 10 (EX600) Health Signature Audit [place] Stage Time Signature Unsigned Intra-Procedure 09/30/2018 Ibeth Dunlap 10:10:06 AM RT(R) Signatures Monitor : Ibeth Dunlap Signature : RT Date : Time : [address] [address]
[~2018-09-29 01:44] MED LIST: FLOMAX0.4 MG PO; FUROSEMIDE20 MG PO; GLIPIZIDE10 MG PO; GLUCOPHAGE1000 MG PO; GLUCOPHAGE500 MG PO; PRAVACHOL40 MG PO; RANEXA500 MG PO; ZESTRIL40 MG PO
[2018-09-29 02:17] LABS: BASOPHILS 0.3 % (0-2); EOSINOPHILS 2.3 % (0-7); HEMATOCRIT 36.8 % (42.0-54.0); HEMOGLOBIN 12.4 g/dL (13.5-17.5); IMMATURE GRANULOCYTES 0.3 % (0-5); LYMPHOCYTES 38.6 % (15-50); MCH 29.5 pg (26.0-34.0); MCHC 33.7 g/dL (31.0-37.0); MCV 87.4 fL (80.0-100.0); MEAN PLATELET VOLUME 8.8 fL (7.4-10.4); NEUTROPHILS 51.5 % (40-80); PLATELET COUNT 281 10x3/uL (130-400); RBC 4.21 10x6/uL (4.20-6.10); RDW 15.3 % (11.5-14.5); WBC 6.6 10x3/uL (4.8-10.8)
[2018-09-29 02:36] LABS: ALBUMIN 3.5 g/dL (3.4-5.0); ALKALINE PHOSPHATASE 47 U/L (46-116); ALT (SGPT) 20 U/L (10-68); BILIRUBIN - TOTAL 0.25 mg/dL (0.2-1.3); CALC OSMOLALITY 281 mosm/kg (275-300); CALCIUM 8.8 mg/dL (8.5-10.1); CARBON DIOXIDE 26.5 mmol/L (21.0-32.0); CHLORIDE - SERUM 105 mmol/L (98-107); CREATININE - SERUM 1.2 mg/dL (0.6-1.3); POTASSIUM - SERUM 3.9 mmol/L (3.5-5.1); PROTEIN - SERUM 7.5 g/dL (6.4-8.2); SODIUM 140 mmol/L (136-145); UREA NITROGEN 15 mg/dL (7-18); eGFR NON AFRICAN AMERICAN 64 mL/min (90-120)
[2018-09-29 02:37] LABS: APTT 26.9 SECONDS (22.8-39.4); GLUCOSE 131 mg/dL (74-106); INR 1.02 (0.85-1.17); PROTIME 12.9 SECONDS (11.6-15.0)
[2018-09-29 02:49] LABS: CKMB 3.1 U/L (0.0-3.6); CREATINE KINASE 197 UL (21-232); MAGNESIUM - SERUM 1.7 mg/dL (1.8-2.4); TROPONIN-I 0.057 ng/mL (0.000-0.060)
--- NOTE | 2018-09-29 05:42 | NUR ---
PT ARRIVED TO M2 WITH HOSPITAL STAFF. PT ALERT AND ORIENTED.
--- NOTE | 2018-09-29 06:55 | NUR ---
NO TELEMETRY AVAIBLE. WILL TRY TO GET ONE LATER.
--- NOTE | 2018-09-29 07:35 | NUR ---
ASSESSMENT COMPLETED. ALERT AND ORIENTED. TELEMERTY PLACED ON PT SHOWING SR 96. UP AB ARASH. O2 AT 2 L/M PER NC. DENIES ANY NEEDS. SR UP WITHCALL LIGHT IN REACH
--- NOTE | 2018-09-29 14:50 | NUR ---
LYING QUIETLY WITH EYES CLOSED. NO NEEDS NOTED. TELEMERTY SHOWS SR. WILL MONITOR
--- NOTE | 2018-09-29 20:00 | NUR ---
ROUNDS COMPLETED. VSS, AAOX3 NO S/S OF RESP DISTRESS. FAMILY @BEDSIDE. PT 90'S ON TELE. NPO AFTER MIDNIGHT FOR CATH IN AM. PT DENIES ANY FURTHER NEEDS AT THIS TIME. WILL CTM.
--- NOTE | 2018-09-29 23:58 | NUR ---
PT IN BED WITH EYES CLOSED. IV LASIX GIVEN @ THIS TIME. SPOUSE AT BEDSIDE. WILL CTM.
[2018-09-30] VITALS: BP 155/81
[2018-09-30 05:59] LABS: BASOPHILS 0.2 % (0-2); EOSINOPHILS 1.8 % (0-7); HEMATOCRIT 37.9 % (42.0-54.0); HEMOGLOBIN 12.7 g/dL (13.5-17.5); LYMPHOCYTES 40.5 % (15-50); MCH 29.3 pg (26.0-34.0); MCHC 33.5 g/dL (31.0-37.0); MCV 87.3 fL (80.0-100.0); MEAN PLATELET VOLUME 9.4 fL (7.4-10.4); MONOCYTES 7.9 % (2-11); NEUTROPHILS 49.6 % (40-80); PLATELET COUNT 282 10x3/uL (130-400); RBC 4.34 10x6/uL (4.20-6.10); RDW 15.2 % (11.5-14.5); WBC 5.5 10x3/uL (4.8-10.8)
[2018-09-30 06:25] LABS: ALBUMIN 3.4 g/dL (3.4-5.0); ALKALINE PHOSPHATASE 46 U/L (46-116); ALT (SGPT) 23 U/L (10-68); BILIRUBIN - TOTAL 0.43 mg/dL (0.2-1.3); CALC OSMOLALITY 279 mosm/kg (275-300); CALCIUM 8.7 mg/dL (8.5-10.1); CARBON DIOXIDE 29.4 mmol/L (21.0-32.0); CHLORIDE - SERUM 101 mmol/L (98-107); CKMB 1.4 U/L (0.0-3.6); CREATINE KINASE 136 UL (21-232); CREATININE - SERUM 1.2 mg/dL (0.6-1.3); GLUCOSE 160 mg/dL (74-106); POTASSIUM - SERUM 3.9 mmol/L (3.5-5.1); PRO BNP 500 pg/mL (0-125); PROTEIN - SERUM 7.4 g/dL (6.4-8.2); SODIUM 138 mmol/L (136-145); TROPONIN-I < 0.017 ng/mL (0.000-0.060); UREA NITROGEN 15 mg/dL (7-18); eGFR NON AFRICAN AMERICAN 64 mL/min (90-120)
[2018-09-30 06:49] VITALS: BP 140/88
--- NOTE | 2018-09-30 07:00 | NUR ---
REPORT RECEIVED. ALERT ABLE TO VOICE NEEDS. RESP EVEN WITHOUT LABOR. DENIES ANY CURRENT C/P. SALINE LOCK IN RIGHT A/C INTACT. FAMILY AT BEDSIDE.
--- NOTE | 2018-09-30 09:07 | NUR ---
GONE FOR HEART CATH AT THIS TIME. HE DENIES ANY C/P. RESP EVEN WITHOUT LABOR.
[2018-09-30 09:15] VITALS: BP 111/78
--- NOTE | 2018-09-30 10:34 | NUR ---
RETURN FROM PREPARED FOODS TEAM LEADER. DROWSY BUT AROUSES TO VERBAL STIMULI. RIGHT GROIN SITE IS CLEAR, DRESSING D/I. NO HEMATOMA AND RIGHT THIGH IS SOFT.
--- NOTE | 2018-09-30 10:39 | CN ---
PATIENT NAME:NICOL BERRIOS SR MEDICAL RECORD: [id number] : 52 LOCATION:D. D.2134 ADMIT DATE: 09/29/18 ACCOUNT: [id number] CONSULTING PHYSICIAN: ADIS REED MD REFERRING PHYSICIAN: ADIS REED MD DATE OF CONSULTATION: 09/29/2018 DIAGNOSES: 1. Unstable angina class IV. 2. Coronary artery disease. 3. Previous percutaneous transluminal coronary angioplasty stent. 4. Shortness of breath, dyspnea on exertion. 5. Pulmonary edema. 6. Congestive heart failure. 7. Hypertension. 8. Hyperlipidemia. 9. Noninsulin-dependent diabetes. 10. Cardiomyopathy. 11. Congestive heart failure, chronic systolic dysfunction. HISTORY OF PRESENT ILLNESS: Mr. Berrios presents with class IV unstable anginal symptomatology. Troponin is almost elevated at 0.057. Chest x-ray is compatible with pulmonary edema. He continues to have the chest heaviness and the shortness of breath. Last cardiac intervention was in December of last year. PHYSICAL EXAMINATION: GENERAL APPEARANCE: Well-nourished, well-developed, appears stated age. Level of distress, comfortable. PSYCHIATRIC: Mental status, alert, normal affect. Orientation, oriented to time, place and person. EYES: Lids and conjunctiva, noninjected. No discharge, no pallor. ENT: Lips, teeth, gums, normal dentition. Oropharynx, no cyanosis, no pallor. NECK: Carotid arteries, bilateral normal upstroke, no bruits, no thrills. JUGULAR VEINS: No jugular venous pressure or distention. CERVICAL LYMPH NODES: Nontender, nonenlarged. THYROID: Not enlarged. Nontender. No nodules. LUNGS: Respiratory effort, unlabored. CHEST: Normal curvature. No thoracic deformity. No chest wall tenderness. Percussion, resonant. Auscultation, clear. No wheezes, no rales, no rhonchi. CARDIOVASCULAR: Precordial exam, nondisplaced. No heaves or pericardial thrills. Rate and rhythm, regular. Heart sounds, normal S1, normal S2. No S3, no gallop, no rub. Systolic murmur, not heard. Diastolic murmur, not heard. EXTREMITIES: No cyanosis, no edema. Peripheral pulses, full and equal in all extremities, except as noted. No bruits appreciated. ABDOMEN: Soft, nondistended. Normal aorta. No bruit. Nontender. No masses. Liver, nontender, no hepatomegaly. Spleen, nontender, no splenomegaly. MUSCULOSKELETAL: No joint tenderness. No joint swelling. No erythema. NEUROLOGICAL: Normal gait, normal strength, normal tone. SKIN: Warm and dry. OVERALL IMPRESSION: Most likely troponin will elevate for a non-Q-wave myocardial infarction. He is on Ranexa and lisinopril. We will add beta-palmira, Coreg as well as long-acting nitrate. Clear the pulmonary edema hopefully with IV Lasix and proceed with coronary angiography. Further care depends upon the findings of the angiography. CONSULT REPORT [id number] NICOL BERRIOS SR TRANSINT:[id number] Voice Confirmation ID: [id number] DOCUMENT ID: [id number] ADIS REED MD at 1039 CC: [id number] DICTATION DATE: 09/29/18 1051 FIELD KILN BURNER: 09/29/18 1124 ADM IN [place] [id number] [place] [id number]
--- NOTE | 2018-09-30 11:45 | NUR ---
DRESSING D/I TO RIGHT GROIN. NO HEMATOMA, NO BLEEDING, AND THIGH IS SOFT. DROWSY BUT AWAKENS EASILY AND IS DRINKING WITH NO N/V
[2018-09-30] MEDS ORDERED: ASPIRIN81 MG PO (11:54)
[2018-09-30] MEDS ORDERED: PLAVIX75 MG PO (11:54)
--- NOTE | 2018-09-30 13:01 | EC ---
PATIENT:NICOL BERRIOS SR DATE OF SERVICE: 09/29/18 SEX: M MEDICAL RECORD: [id number] DATE OF : 52 LOCATION:D.M2 D.213 AGE OF PATIENT: 67 ADMISSION DATE: 09/29/18 REFERRING PHYSICIAN: INTERPRETING PHYSICIAN: ADIS ISBELL MD ECHOCARDIOGRAM REPORT ECHO CHARGES 4 ECHO COMPLETE Date: 09/29/18 CLINICAL DIAGNOSIS: CHF ECHOCARDIOGRAPHIC MEASUREMENTS (adult normal given) AC root (d.<3.7cm) 3.8 cm LV Septum d (<1.2 cm> 1.7 cm Valve Excursion 1.6 cm LV Septum (systole) 1.8 cm Left Atria (s.<4.0cm> 4.2 cm LVPW d(<1.2cm) 1.8 cm RV (d.<2.3cm) 4.4 cm LVPW (sytole) 1.9 cm LV diastole(<5.6CM) 5.7 cm MV E-F(>70mm/sec) cm LV systole 4.6 cm LVOT Diameter 2.2 cm MV exc.(>10mm) 2.0 cm Est.ejection fraction (50-75%) % DOPPLER: LVIT cm/sec A 59.0 cm/sec E 40.0 cm/sec LA cm/sec RVSP 20 mmHg LVOT 103 cm/sec AOP1/2T m/s Asc. Ao 155 cm/sec RVOT 123 cm/sec RA cm/sec PA 147 cm/sec AV Gradient Peak 9.63 mmHg AV Mean 5.33 mmHg AV Area 2.3 cm MV Gradient Peak 3.95 mmHg MV Mean 1.29 mmHg MV Area cm COMMENTS: Threshing Operator: Oscar MOON Medical Laboratory Specialist: 1 Dr. Isbell TAPE# PACS Pericardial Effusion N DATE OF SERVICE: 09/29/2018 PROCEDURE: Echocardiogram. FINDINGS: 1. Left ventricular chamber size is mildly dilated. Left ventricular systolic function is preserved at 55%. 2. Left atrium, right atrium, and right ventricle chamber sizes are as well mildly dilated. Left atrium measures 4.2 cm. 3. Valvular structures have normal structure and motion. ECHOCARDIOGRAM REPORT [id number] NICOL BERRIOS SR 4. Doppler interrogation reveals mild aortic insufficiency, trace tricuspid regurgitation, no other valvular insufficiency or stenosis. Pulmonary systolic pressure is estimated at 20 mmHg. 5. No evidence of pericardial effusion or left ventricular thrombus. TRANSINT:[id number] Voice Confirmation ID: [id number] DOCUMENT ID: [id number] ADIS ISBELL MD at 1301 CC: [id number] DICTATION DATE: 09/29/18 1603 CARBON PASTE MIXER OPERATOR: 09/29/18 1619 ADM IN [place] [id number] [place] [address]
[2018-09-30] MEDS ORDERED: COREG12.5 MG PO (13:11)
--- NOTE | 2018-09-30 13:36 | NUR ---
HYDROCODONE 10/325 GIVEN FOR C/O BACK PAIN PER DR REED ONE TIME ORDER
--- NOTE | 2018-09-30 15:30 | NUR ---
DISCHARGE AT THIS TIME WITH DISCHARGE INSTRUCTIONS EXPLAINED IN DEPTH TO HIM AND FAMILY AT BEDSIDE. AWARE IF UNCONTROLLED BLEEDING OCCURS PLACE PRESSURE USING 3 FINGERS TO GROIN AND CALL 911. AWARE OF ALL RESTRICTIONS. SALINE LOCK D/C WITH CATH TIP INTACT MINIMAL BLEEDING. RIGHT GROIN SITE IS CLEAR WITH NO HEMATOMA OR BRUISING NOTED. LEFT VIA W/C TRANSPORT TO PRIVATE AUT[facility] WITH RESP EVEN WITHOUT LABOR.
--- NOTE | 2018-09-30 16:22 | MORECARE ---
CASE MANAGEMENT DISCHARGE SUMMARY PATIENT: NICOL BERRIOS SR UNIT: [id number] ADM DATE: 09/29/18 AGE: 67 : 51 SEX: M ROOM/BED: D.2134 AUTHOR: FLOR GARDNER PHYSICIAN: REFERRING PHYSICIAN: AIDS REED MD DATE OF SERVICE: 09/30/18 Discharge Plan Patient Name: NICOL BERRIOS Facility: [facility]:[place] : 1950 Planned Disposition: Home Anticipated Discharge Date: 09/30/18 Discharge Date: Expected LOS: 1 Initial Reviewer: [email or web address] Initial Review Date: 09/30/2018 Generated: 09/30/18 5:21 pm Comments DCP- Discharge Planning Updated by [email or web address]: Jorden Guidry on 09/30/18 3:[address] Patient Name: NICOL BERRIOS Admission Status: ER Accout number: [id number] Admission Date: 09-29-2018 : 1950 Admission Diagnosis: Attending: LAKHWINDER REED Current LOS: 1 Anticipated DC Date: 09-30-2018 Planned Disposition: Home Primary Insurance: [employer] Discharge Planning Comments: CM ATTEMPTED TO MEET WITH PT FOR INITIAL ASSESSMENT OF DISCHARGE NEEDS. PT WAS NOT IN ROOM AT APPROXIMATELY 1620 HOURS. PT HAD DISCHARGED HOME AND HAD LEFT THE HOSPITAL. Webbing Tacker: Jorden Guidry Patient Name: NICOL BERRIOS Page [phone] at 1622 All edits/amendments must be made on the electronic document DICTATION DATE: 09/30/18 1621 FAMILY INDEPENDENCE CASE MANAGER: ED 09/30/18 1621 RPT#: [id number] DC DATE: STATUS: ADM IN [facility] [address] [place] [address] END OF REPORT
--- NOTE | 2018-10-01 12:57 | OP ---
PATIENT NAME: NICOL BERRIOS SR MEDICAL RECORD: [id number] :52 LOCATION:D.M2 D.2134 ADMISSION DATE:09/29/18 SURGEON: ADIS REED MD DATE OF OPERATION: 09/30/2018 PROCEDURES: 1. PTCA stent LAD. 2. IFR. 3. Left heart catheterization. 4. Selective coronary angiography. 5. Left ventriculogram. INDICATION: Unstable angina and coronary artery disease. PROCEDURE PERFORMED: After informed consent was obtained and after a detailed description of risks, benefits as well as alternative therapies, the patient elected to proceed with angiogram and angioplasty. The right femoral area was prepped and draped in normal sterile fashion. Right femoral artery was cannulated via modified Seldinger technique with placement of 6-Ecuadorean sheath. All catheters exchanged through this sheath. FINDINGS: Left ventriculogram was performed in standard 30 degree PADILLA view reveals preserved ejection fraction at 50%. SELECTIVE CORONARY ANGIOGRAPHY: 1. Left main has no significant angiographic disease. 2. Left anterior descending has a 70% to 75% stenosis in the mid vessel. An IFR was abnormal at 0.8. 3. The left circumflex has moderate irregularities, but no flow-limiting stenosis. 4. The right coronary artery has previously placed stent. This is widely patent with no significant restenosis. Moderate irregularities elsewise throughout the RCA and its branches. CIGAR PATCHER STENT OF THE LAD: The stent used was a 2.5 x 26 mm Roderfield. Result was 0% residual stenosis. OVERALL IMPRESSION: Successful percutaneous transluminal coronary angioplasty stent of the left anterior descending going from greater than 70% initial stenosis with significantly abnormal IFR to 0% residual. TRANSINT:[id number] Voice Confirmation ID: [id number] DOCUMENT ID: [id number] ADIS REED MD at 1257 CC: [id number] DICTATION DATE: 09/30/18 1039 FINANCE DIRECTOR: 09/30/18 1109 DIS IN 09/30/18 [place] [id number]
--- NOTE | 2018-10-05 18:38 | DS ---
PATIENT:NICOL BERRIOS SR :52 MEDICAL RECORD: [id number] DISCHARGE SUMMARY ADMISSION DATE: 09/29/18 DISCHARGE DATE: 09/30/18 DATE OF DISCHARGE: 09/30/2018. DIAGNOSES: 1. Unstable angina. 2. Coronary artery disease. 3. Percutaneous transluminal coronary angioplasty stent left anterior descending this admission. 4. Hypertension. 5. Hyperlipidemia. 6. Pulmonary edema. 7. Congestive heart failure. 8. Chronic systolic dysfunction. HOSPITAL COURSE: Ms. Berrios presents with shortness of breath, pulmonary edema, and unstable angina, underwent significant diuresis with IV Lasix. His pulmonary edema cleared, breathing went back to baseline. He was found to have hemodynamically significant stenosis of the LAD, underwent successful PTCA stent of the LAD, discharged home with the addition of aspirin and Plavix to his medical regimen. He will follow up with [facility] in 1 month. TRANSINT:[id number] Voice Confirmation ID: [id number] DOCUMENT ID: [id number] ADIS REED MD at 1838 CC: [id number] DICTATION DATE: 10/01/1814 RACETRACK STEWARD: 10/01/18 0829 DIS IN 09/30/18 [facility] [address] [place] [address]
== END 2018-09-30 15:15 | disposition home or self-care (01) | DRG 246 ==
LOC: D.ER 01:44 → D.M2 04:54
PROVIDERS: Family Medicine; ADMIT Internal Medicine Interventional Cardiology; ATTEND Internal Medicine Interventional Cardiology
PROC: 4A023N7 Measurement of Cardiac Sampling and Pressure, Left Heart, Percutaneous Approach (ICD-10-PCS; 2018-09-30)
PROC: B2111ZZ Fluoroscopy of Multiple Coronary Arteries using Low Osmolar Contrast (ICD-10-PCS; 2018-09-30)
PROC: B2151ZZ Fluoroscopy of Left Heart using Low Osmolar Contrast (ICD-10-PCS; 2018-09-30)
PROC: 027034Z Dilation of Coronary Artery, One Artery with Drug-eluting Intraluminal Device, Percutaneous Approach (ICD-10-PCS; principal; 2018-09-30 09:00)
PROC: 4A033BC Measurement of Arterial Pressure, Coronary, Percutaneous Approach (ICD-10-PCS; 2018-09-30 09:00)
DX: I21.4 Non-ST elevation (NSTEMI) myocardial infarction (principal); I50.23 Acute on chronic systolic (congestive) heart failure; I42.9 Cardiomyopathy, unspecified; I25.110 Atherosclerotic heart disease of native coronary artery with unstable angina pectoris; I11.0 Hypertensive heart disease with heart failure; E11.9 Type 2 diabetes mellitus without complications; E78.5 Hyperlipidemia, unspecified

== ENCOUNTER 2018-12-12 17:50 | Inpatient (IN) | payer MEDICARE ==
[~2018-12-12] VITALS: Ht 185.4 cm; Wt 115.5 kg
[~2018-12-12 17:50] MED LIST changes: +ASPIRIN81 MG PO; +COREG12.5 MG PO; +PLAVIX75 MG PO
[2018-12-12] MEDS ORDERED: CLARITHROMYCIN500 M1 PO (17:54)
[2018-12-12] MEDS ORDERED: STERAPRED DS 1010 MG PO (17:55)
[2018-12-12] MEDS ORDERED: ALBUTEROL0.63 MG/3 INH (17:55)
[2018-12-12 18:17] LABS: BASOPHILS 0.2 % (0-2); EOSINOPHILS 0.2 % (0-7); HEMATOCRIT 36.2 % (42.0-54.0); HEMOGLOBIN 12.3 g/dL (13.5-17.5); IMMATURE GRANULOCYTES 0.2 % (0-5); LYMPHOCYTES 21.5 % (15-50); MCV 85.4 fL (80.0-100.0); MEAN PLATELET VOLUME 9.1 fL (7.4-10.4); NEUTROPHILS 69.9 % (40-80); PLATELET COUNT 244 10x3/uL (130-400); RBC 4.24 10x6/uL (4.20-6.10); WBC 5.8 10x3/uL (4.8-10.8)
[2018-12-12 18:25] LABS: APTT 24.8 SECONDS (22.8-39.4); INR 1.04 (0.85-1.17); PROTIME 13.1 SECONDS (11.6-15.0)
[2018-12-12 18:30] LABS: ALBUMIN 3.7 g/dL (3.4-5.0); ALKALINE PHOSPHATASE 54 U/L (46-116); ALT (SGPT) 25 U/L (10-68); BILIRUBIN - TOTAL 0.17 mg/dL (0.2-1.3); CALC OSMOLALITY 284 mosm/kg (275-300); CALCIUM 9.6 mg/dL (8.5-10.1); CARBON DIOXIDE 28.3 mmol/L (21.0-32.0); CHLORIDE - SERUM 102 mmol/L (98-107); CREATININE - SERUM 1.2 mg/dL (0.6-1.3); GLUCOSE 164 mg/dL (74-106); POTASSIUM - SERUM 4.5 mmol/L (3.5-5.1); PROTEIN - SERUM 7.5 g/dL (6.4-8.2); SODIUM 140 mmol/L (136-145); UREA NITROGEN 18 mg/dL (7-18); eGFR NON AFRICAN AMERICAN 64 mL/min (90-120)
[2018-12-12 18:42] LABS: CKMB 2.2 U/L (0.0-3.6); CREATINE KINASE 184 UL (21-232); PRO BNP 1592 pg/mL (0-125); TROPONIN-I < 0.017 ng/mL (0.000-0.060)
--- NOTE | 2018-12-12 18:53 | NUR ---
PT LEFT ED VIA WC FOR CTA.
--- NOTE | 2018-12-12 19:06 | NUR ---
PT RETURNED VIA WC FROM CTA. PT AWAKE AND ALERT. NO S/S OF ACUTE DISTRESS NOTED.
[2018-12-12 19:30] VITALS: BP 154/92
--- NOTE | 2018-12-12 20:45 | NUR ---
PATIENT TO THE FLOOR VIA WHEELCHAIR. PATIENT'S HERE WITH MED REC LIST. ASSIST PATIENT INTO BED. PATIENT IS COUGHING BUT COUGH IN UNPRODUCTIVE.
[2018-12-12] MEDS ORDERED: PREDNISONE10 MG PO (20:52)
[2018-12-12] MEDS ORDERED: PLAVIX75 MG PO (20:59)
[2018-12-12] MEDS ORDERED: ALDACTONE25 MG PO (21:00)
[2018-12-12 22:12] VITALS: BP 163/98; Ht 185.4 cm; Wt 115.5 kg
[2018-12-12 23:23] VITALS: BP 151/78
[2018-12-13 04:00] VITALS: BP 168/87
[2018-12-13 08:00] VITALS: BP 155/70
--- NOTE | 2018-12-13 10:37 | NUR ---
ALERT AND ORIENTED X4. UP TAKING A SHOWER. LINEN CHANGE COMPLETE. SPOUSE AT BEDSIDE. DENIES ANY NEEDS AT THIS TIME. CONTINUE PLAN OF CARE AND SAFETY PRECAUTIONS.
[2018-12-13 12:00] VITALS: BP 190/90
[2018-12-13 13:06] LABS: % SATURATION 10 % (15-55); IRON 31 ug/dl (35-150); TOTAL IRON BIND CAPACITY 305 ug/dl (260-445); UNSAT IRON BIND CAPACITY 274 ug/dl (150-375)
[2018-12-13 13:20] LABS: CKMB 1.8 U/L (0.0-3.6); CREATINE KINASE 165 UL (21-232)
[2018-12-13 13:21] LABS: TROPONIN-I < 0.017 ng/mL (0.000-0.060)
[2018-12-13 16:00] VITALS: BP 170/893; BP 181/93
--- NOTE | 2018-12-13 18:36 | NUR ---
ALERT AND ORIENTED X4. SITTING UP IN CHAIR. SPOUSE IN BED. SINUS RHYTHM 89 ON TELEMETRY. DENIES PAIN. SOB RELIEVED WITH OXYGEN THERAPY PER PATIENT. DENIES ANY NEEDS AT THIS TIME. CONTINUE PLAN OF CARE AND SAFETY PRECAUTIONS.
--- NOTE | 2018-12-13 19:20 | NUR ---
AWAKE AND ALERT SITTING ON BEDSIDE BED IS LOW AND LOCKED PT STABLE WHEN AMBULATING LCTA BUT SOUND CONJESTED WITH COUGH SKIN WARM AND DRY ASSISTED WITH NEEDS CALL LIGHT IS WITH VISITOR
[2018-12-13 19:26] LABS: CKMB 1.8 U/L (0.0-3.6); CREATINE KINASE 188 UL (21-232)
[2018-12-13 19:27] LABS: TROPONIN-I < 0.017 ng/mL (0.000-0.060)
[2018-12-13 20:23] VITALS: BP 132/88
[2018-12-14] VITALS (7 sets, daily range): BP systolic 119–178; BP diastolic 65–107
--- NOTE | 2018-12-14 00:50 | NUR ---
I have reviewed this patient and I concur with the Shift Assessment completed by the Licensed Practical Nurse today this shift.
[2018-12-14 01:54] LABS: CKMB 1.7 U/L (0.0-3.6); CREATINE KINASE 226 UL (21-232); TROPONIN-I < 0.017 ng/mL (0.000-0.060)
[2018-12-14 05:02] LABS: BASOPHILS 0.1 % (0-2); EOSINOPHILS 0 % (0-7); HEMATOCRIT 37.6 % (42.0-54.0); HEMOGLOBIN 12.8 g/dL (13.5-17.5); IMMATURE GRANULOCYTES 0.1 % (0-5); LYMPHOCYTES 9.4 % (15-50); MCH 28.7 pg (26.0-34.0); MCV 84.3 fL (80.0-100.0); MEAN PLATELET VOLUME 9.4 fL (7.4-10.4); MONOCYTES 4.7 % (2-11); NEUTROPHILS 85.7 % (40-80); PLATELET COUNT 259 10x3/uL (130-400); RBC 4.46 10x6/uL (4.20-6.10); RDW 14.6 % (11.5-14.5)
[2018-12-14 05:09] LABS: WBC 8.4 10x3/uL (4.8-10.8)
[2018-12-14 05:27] LABS: ANION GAP 12.6 mmol/L (8-16); CALCIUM 8.9 mg/dL (8.5-10.1); CARBON DIOXIDE 27.8 mmol/L (21.0-32.0); CREATININE - SERUM 1.1 mg/dL (0.6-1.3); POTASSIUM - SERUM 4.4 mmol/L (3.5-5.1)
--- NOTE | 2018-12-14 07:40 | NUR ---
RECIEVED REPORT. RESTING IN BED WITH EYES CLOSED. RESPIRATIONS NONLABORED. SINUS RYTHM ON TELEMETRY. CONTINUE PLAN OF CARE AND SAFETY PRECAUTIONS.
[2018-12-14 13:19] LABS: COLOR YELLOW (YELLOW)
[2018-12-14 13:20] LABS: APPEARANCE CLEAR (CLEAR); BACTERIA FEW /hpf (NEGATIVE); BILIRUBIN NEGATIVE (NEGATIVE); EPITHELIAL CELLS RARE /hpf (0-5); GLUCOSE 1000 mg/dL (NEGATIVE); KETONE NEGATIVE (NEGATIVE); NITRITE NEGATIVE (NEGATIVE); PROTEIN NEGATIVE (NEGATIVE); RED CELLS - URINE OCC /hpf (0-5); SPECIFIC GRAVITY 1.015 (1.005-1.020); UROBILINOGEN NORMAL (NORMAL); WHITE CELLS - URINE NSEEN /hpf (NEGATIVE)
--- NOTE | 2018-12-14 19:33 | NUR ---
AWAKE AND ALERT LUNGS CLEAR WITH A SMALL WHEEZE UPPER LOBES WILL CONGEST WITH COUGH SKIN WARM AND DRY PT ASSISTED WITH NEEDS
--- NOTE | 2018-12-14 23:32 | NUR ---
RUPERTO ARTHUR NOTIFIED AND OK GIVEN TO DC TELEMETRY MONITORING
[2018-12-15] VITALS: BP 136/75
--- NOTE | 2018-12-15 02:54 | NUR ---
ANSERED PT CALL LIGHT CO SWEATING WORRIED ABOUT LOW BLOOD SUGER QUICK CHECK 218 ADJUSTED ROOM TEMP AND PROVIDED A COOL DRINK
--- NOTE | 2018-12-15 04:50 | NUR ---
I have reviewed this patient and I concur with the Shift Assessment completed by the Licensed Practical Nurse today this shift.
[2018-12-15 05:50] LABS: BASOPHILS 0.1 % (0-2); EOSINOPHILS 0 % (0-7); HEMATOCRIT 39.9 % (42.0-54.0); HEMOGLOBIN 13.4 g/dL (13.5-17.5); IMMATURE GRANULOCYTES 0.2 % (0-5); MCH 28.7 pg (26.0-34.0); MCHC 33.6 g/dL (31.0-37.0); MCV 85.4 fL (80.0-100.0); MEAN PLATELET VOLUME 9.3 fL (7.4-10.4); MONOCYTES 4.3 % (2-11); NEUTROPHILS 80.4 % (40-80); PLATELET COUNT 258 10x3/uL (130-400); RBC 4.67 10x6/uL (4.20-6.10); WBC 8.1 10x3/uL (4.8-10.8)
[2018-12-15 06:20] LABS: ANION GAP 12.8 mmol/L (8-16); CARBON DIOXIDE 26.2 mmol/L (21.0-32.0); CREATININE - SERUM 1.2 mg/dL (0.6-1.3)
[2018-12-15 08:00] VITALS: BP 135/76
--- NOTE | 2018-12-15 08:57 | NUR ---
AM MEDS GIVEN AT THIS TIME. ONLY GAVE 500MG OF RENEXA PER PT REQUEST, PT INFORMED NURSE THAT HE ONLY 500MG OF RENEXA BID. PT A/O X4, RESP EVEN AND NONLABORED ON 2L. LT AC IV SL. PT DENIES ANY NEEDS AT THIS TIME. CALL LIGHT IN REACH, NAD NOTED,W ILL CONTINUE TO MONITOR.
--- NOTE | 2018-12-15 11:13 | NUR ---
BLOOD SUGAR OF 294, 6UNITS OF INSULIN GIVEN AT THIS TIME.
[2018-12-15] MEDS ORDERED: LEVOFLOXACIN500 MG PO (11:26)
[2018-12-15] MEDS ORDERED: STERAPRED DS 1010 MG PO (11:28)
[2018-12-15 12:24] VITALS: BP 148/95
--- NOTE | 2018-12-15 14:18 | NUR ---
PROVIDED VERBAL AND WRITTEN DISCHARGE TEACHING TO PT, WHO VERBALIZED UNDERSTANDING REGARDING TEACHING. D/C LT AC IV WITH CATHETER TIP INTACT. PT REFUSED WHEELCHAIR, LEFT UNIT VIA AMBULATORY, WITH ALL BELONGIGNGS, ACCOMPANIED BY SPOUSE, NAD NOTED.
--- NOTE | 2018-12-15 15:25 | MORECARE ---
CASE MANAGEMENT DISCHARGE SUMMARY PATIENT: NICOL BERRIOS SR UNIT: [id number] ADM DATE: 12/12/18 AGE: 68 : 51 SEX: M ROOM/BED: D.2138 AUTHOR: FLOR GARDNER PHYSICIAN: REFERRING PHYSICIAN: JAEL ESPINOZA MD DATE OF SERVICE: 12/15/18 Discharge Plan Patient Name: NICOL BERRIOS Facility: [facility]:[place] : 1950 Planned Disposition: Home Anticipated Discharge Date: 12/15/18 Discharge Date: 12/15/2018 Expected LOS: 3 Initial Reviewer: [id number] Initial Review Date: 12/15/2018 Generated: 12/15/18 4:24 pm DCPIA - Discharge Planning Initial Assessment Updated by ABRAHAN: Jorden Guidry on 12/15/18 3:23 pm * Is the patient Alert and Oriented? Yes * How many steps to enter\exit or inside your home? NONE * PCP RESIDENTIAL FRAMING CARPENTER MAHENDRA DAVILA * Pharmacy [facility] [address] * Preadmission Environment Home with Family * ADLs Independent * Equipment Cane Nebulizer Oxygen * Other Equipment OXYGEN COMPANY IN [place], [place] (OBTAINED HOME OXYGEN ONLY 3 YEARS AGO) * List name and contact numbers for known caregivers / representatives who currently or will assist patient after discharge: JULIÁN PLATA, GIRLFRIEND, * Verbal permission to speak to the caregivers and representatives has been obtained from the patient. N/A * Community resources currently utilized None * Please name any agencies selected above. NONE * Additional services required to return to the preadmission environment? No * Can the patient safely return to the preadmission environment? Yes Coverage Notice Reviewer: [id number] - Jorden Guidry Notice Issued Date-Time: 12/15/2018 12:44 Notice Type: IM Discharge Notice Notice Delivered To: Patient Relationship to Patient: Saddle And Harness Maker Name: Delivery Method: HAND - Hand Delivered Norma Days: Prior Verbal Notification: Recipient Understood Notice: Yes Recipient Signature: Yes Med Rec Note Co-signed by Attending: Coverage Notice Comment: Patient Name: NICOL BERRIOS Page [phone] at 1525 All edits/amendments must be made on the electronic document DICTATION DATE: 12/15/18 1524 MEDICAL SERVICES ASSISTANT: ED 12/15/18 1524 RPT#: [id number] DC DATE:12/15/18 STATUS: DIS IN [facility] [address] [place] [address] END OF REPORT
--- NOTE | 2018-12-15 15:34 | MORECARE ---
CASE MANAGEMENT DISCHARGE SUMMARY PATIENT: NICOL BERRIOS UNIT: [id number] ADM DATE: 12/12/18 AGE: 68 : 51 SEX: M ROOM/BED: D.3244 AUTHOR: KENDRA,DOC PHYSICIAN: REFERRING PHYSICIAN: JAEL ESPINOZA MD DATE OF SERVICE: 12/15/18 Discharge Plan Patient Name: NICOL BERRIOS Facility: [facility]:[place] : 1950 Planned Disposition: Home Anticipated Discharge Date: 12/15/18 Discharge Date: 12/15/2018 Expected LOS: 3 Initial Reviewer: [email or web address] Initial Review Date: 12/15/2018 Generated: 12/15/18 4:34 pm Comments DCP- Discharge Planning Updated by [email or web address]: Jorden Guidry on 12/15/18 2:[address] Patient Name: NICOL BERRIOS Admission Status: ER Accout number: [id number] Admission Date: 12-12-2018 : 1950 Admission Diagnosis:SHORTNESS OF BREATH Attending: JAEL NICOLAS Current LOS: 3 Anticipated DC Date: 12-15-2018 Planned Disposition: Home Primary Insurance: [employer] Discharge Planning Comments: CM MET WITH PT IN ROOM TO DISCUSS DISCHARGE PLANNING AND NEEDS. PT REPORTS LIVING AT HOME INDEPENDENTLY WITH HIS GIRLFRIEND. PT HAS CANE, NEBULIZER AND HOME OXYGEN WITH NO MEDICAL EQUIPMENT PROVIDER PREFERENCE. PT RECEIVED HOME OXYGEN FROM UNKNOWN COMPANY IN [place] THREE YEARS AGO. PT HAS NO OUTSIDE SERVICES ASSISTING IN THE HOME. CM DISCUSSED AVAILABILITY OF HOME HEALTH, REHAB SERVICES AND MEDICAL EQUIPMENT. PT DENIES DISCHARGE NEEDS, REPORTS HIS GIRLFRIEND WILL PICK HIM UP FOR DISCHARGE HOME. IMPORTANT MESSAGE FROM MEDICARE PROVIDED AND EXPLAINED. JEWEL BEARING POLISHER NURSE NOTIFIED. Bag Inspector: Jorden Guidry DCPIA - Discharge Planning Initial Assessment Updated by [id number]: Jorden Guidry on 12/15/18 3:23 pm * Is the patient Alert and Oriented? Yes * How many steps to enter\exit or inside your home? NONE * PCP HVAC REFRIGERATION TECHNICIAN MAHENDRA DAVILA * Pharmacy [facility] [address] * Preadmission Environment Home with Family * ADLs Independent * Equipment Cane Nebulizer Oxygen * Other Equipment OXYGEN COMPANY IN [place], [place] (OBTAINED HOME OXYGEN ONLY 3 YEARS AGO) * List name and contact numbers for known caregivers / representatives who currently or will assist patient after discharge: JULIÁN PLATA, GIRLFRIEND, * Verbal permission to speak to the caregivers and representatives has been obtained from the patient. N/A * Community resources currently utilized None * Please name any agencies selected above. NONE * Additional services required to return to the preadmission environment? No * Can the patient safely return to the preadmission environment? Yes Coverage Notice Reviewer: [id number] Elijah Guidry Notice Issued Date-Time: 12/15/2018 12:44 Notice Type: IM Discharge Notice Notice Delivered To: Patient Relationship to Patient: Blueprint Processor Name: Delivery Method: HAND - Hand Delivered Norma Days: Prior Verbal Notification: Recipient Understood Notice: Yes Recipient Signature: Yes Med Rec Note Co-signed by Attending: Coverage Notice Comment: Last DP export: 12/15/18 2:25 p Patient Name: NICOL BERRIOS Page [phone] at 1534 All edits/amendments must be made on the electronic document DICTATION DATE: 12/15/18 1533 COMPLIANCE PROFESSIONAL: ED 12/15/18 1533 RPT#: [id number] DC DATE:12/15/18 STATUS: DIS IN [facility] [address] [place] [address] END OF REPORT
== END 2018-12-15 14:19 | disposition home or self-care (01) | DRG 189 ==
LOC: D.ER 17:50 → D.M2 19:45
PROVIDERS: Family Medicine; ADMIT Family Medicine; ATTEND Family Medicine
DX: J96.01 Acute respiratory failure with hypoxia (principal); I50.22 Chronic systolic (congestive) heart failure; N17.9 Acute kidney failure, unspecified; E87.1 Hypo-osmolality and hyponatremia; J20.9 Acute bronchitis, unspecified; I25.10 Atherosclerotic heart disease of native coronary artery without angina pectoris; E11.65 Type 2 diabetes mellitus with hyperglycemia; I11.0 Hypertensive heart disease with heart failure; E78.5 Hyperlipidemia, unspecified; D64.9 Anemia, unspecified; Z87.891 Personal history of nicotine dependence

== ENCOUNTER 2019-01-26 20:12 | Emergency (ER) | payer MEDICARE ==
[~2019-01-26] VITALS: Ht 185.4 cm; Wt 120.0 kg
[~2019-01-26 20:12] MED LIST changes: +ALBUTEROL0.63 MG/3 INH; +ALDACTONE25 MG PO; +CLARITHROMYCIN500 M1 PO; +LEVOFLOXACIN500 MG PO; +PREDNISONE10 MG PO; +STERAPRED DS 1010 MG PO
[2019-01-26 20:14] VITALS: Ht 185.4 cm; Wt 120.0 kg
[2019-01-26] MEDS ORDERED: AUGMENTIN 875-11 TAB PO (22:15)
[2019-01-26 22:49] VITALS: BP 146/83
== END 2019-01-26 22:25 | disposition home or self-care (01) ==
LOC: D.ER 20:12
DX: S00.03XA Contusion of scalp, initial encounter (principal); W18.30XA Fall on same level, unspecified, initial encounter; Y92.000 Kitchen of unspecified non-institutional (private) residence as the place of occurrence of the external cause

== ENCOUNTER 2019-01-29 04:34 | Inpatient (IN) | payer MEDICARE ==
[~2019-01-29] VITALS: Ht 185.4 cm; Wt 119.5 kg
[~2019-01-29 04:34] MED LIST changes: +AUGMENTIN 875-11 TAB PO
--- NOTE | 2019-01-29 05:28 | NUR ---
PT AMBULATED TO RESTROOM INDEPENDENTLY.
[2019-01-29 05:31] LABS: BASOPHILS 0 % (0-2); EOSINOPHILS 3.4 % (0-7); HEMATOCRIT 35.5 % (42.0-54.0); HEMOGLOBIN 11.3 g/dL (13.5-17.5); IMMATURE GRANULOCYTES 0.5 % (0-5); LYMPHOCYTES 34.5 % (15-50); MCH 27.8 pg (26.0-34.0); MCHC 31.8 g/dL (31.0-37.0); MCV 87.2 fL (80.0-100.0); MEAN PLATELET VOLUME 9.9 fL (7.4-10.4); MONOCYTES 9.2 % (2-11); NEUTROPHILS 52.4 % (40-80); RBC 4.07 10x6/uL (4.20-6.10); RDW 15.6 % (11.5-14.5); WBC 7.3 10x3/uL (4.8-10.8)
[2019-01-29 05:35] VITALS: BP 163/89
[2019-01-29 05:38] LABS: PLATELET COUNT 380 10x3/uL (130-400)
[2019-01-29 05:48] LABS: CALC OSMOLALITY 286 mosm/kg (275-300); CALCIUM 8.4 mg/dL (8.5-10.1); CHLORIDE - SERUM 104 mmol/L (98-107); GLUCOSE 244 mg/dL (74-106); POTASSIUM - SERUM 4.3 mmol/L (3.5-5.1); SODIUM 139 mmol/L (136-145); UREA NITROGEN 14 mg/dL (7-18); eGFR NON AFRICAN AMERICAN 79 mL/min (90-120)
[2019-01-29 05:54] LABS: APTT 32.6 SECONDS (22.8-39.4); INR 1.03 (0.85-1.17)
--- NOTE | 2019-01-29 06:03 | NUR ---
PT TO RADIOLOGY AT THIS TIME.
[2019-01-29 06:21] LABS: ALBUMIN 2.9 g/dL (3.4-5.0); ALKALINE PHOSPHATASE 61 U/L (46-116); ALT (SGPT) 20 U/L (10-68); BILIRUBIN - TOTAL 0.28 mg/dL (0.2-1.3); CKMB 1.9 U/L (0.0-3.6); CREATINE KINASE 188 UL (21-232); PRO BNP 993 pg/mL (0-125); TROPONIN-I 0.029 ng/mL (0.000-0.060)
--- NOTE | 2019-01-29 06:28 | NUR ---
PT RETURNED FROM RADIOLOGY AT THIS TIME.
--- NOTE | 2019-01-29 06:30 | NUR ---
LAB AT PT'S BEDSIDE TO DRAW BLOOD CULTURES.
--- NOTE | 2019-01-29 07:54 | NUR ---
RECEIVED FROM ER VIA W/C HE IS ABLE TO TRANSFER SELF TO THE BED. ORENT TO ROOM INCLUDING USE OF CL. HE HAS SOME SOB WITH TALKING BBS ARE CLEAR BUT DIMINSHED ON LEFT SIDE. HE HAS KNOT ON LEFT SIDE OF HEAD AND IS SORE ON LEFT ELBOW AND UNDER LEFT RIB AREA FROM FALL ON FRIDAY. HE WILL USE CL BEFORE HE GETS UP OUT OF BED. HIS VOICE IS HOARSE FROM COUGHING. O2 IS ON AT 3 L/M PER N/C WHICH HE WEARS AT HOME ALSO. BED IN LOWEST POSITION AND LOCKED. INITIAL CAREPLAN IN PLACE,
[2019-01-29] MEDS ORDERED: GLUCOPHAGE500 MG PO (08:03)
[2019-01-29 08:11] VITALS: BP 164/93; BMI 35.7
[2019-01-29 09:26] LABS: CHOL - HDL RATIO 4.7 ratio (2.3-4.9); LDL-HDL RATIO 3.3 ratio (1.5-3.5)
[2019-01-29 09:35] VITALS: BP 164/93
[2019-01-29 12:59] VITALS: BP 142/70
--- NOTE | 2019-01-29 13:51 | EC ---
PATIENT:NICOL BERRIOS SR DATE OF SERVICE: 01/29/19 SEX: M MEDICAL RECORD: [id number] DATE OF : 52 LOCATION:D.M2 D.213 AGE OF PATIENT: 68 ADMISSION DATE: 01/29/19 REFERRING PHYSICIAN: INTERPRETING PHYSICIAN: GIUSEPPE LUCAS MD ECHOCARDIOGRAM REPORT ECHO CHARGES 5 ECHO LIMITED Date: 01/29/19 CLINICAL DIAGNOSIS: CHF ECHOCARDIOGRAPHIC MEASUREMENTS (adult normal given) AC root (d.<3.7cm) 0 cm LV Septum d (<1.2 cm> 0 cm Valve Excursion 0 cm LV Septum (systole) 0 cm Left Atria (s.<4.0cm> 0 cm LVPW d(<1.2cm) 0 cm RV (d.<2.3cm) 0 cm LVPW (sytole) 0 cm LV diastole(<5.6CM) 0 cm MV E-F(>70mm/sec) 0 cm LV systole cm LVOT Diameter 0 cm MV exc.(>10mm) 0 cm Est.ejection fraction (50-75%) 0 % DOPPLER: LVIT cm/sec A 0 cm/sec E 0 cm/sec LA 0 cm/sec RVSP 18.5 mmHg LVOT 0 cm/sec AOP1/2T m/s Asc. Ao 0 cm/sec RVOT 0 cm/sec RA 0 cm/sec PA 0 cm/sec AV Gradient Peak 0 mmHg AV Mean 0 mmHg AV Area 0 cm MV Gradient Peak 0 mmHg MV Mean 0 mmHg MV Area cm COMMENTS: Fish Trapper: Elpidio [facility] Field Hockey Coach: 3 Dr. Bundy TAPE# PACS Pericardial Effusion N DATE OF SERVICE: This is a technically limited study. Grossly LVH appears present. LV internal dimensions are normal. LV appears to be mildly globally hypo with LV function lower limits of normal to mildly reduced at 45% to 50%. Aortic valve is tricuspid. No evidence of stenosis by Doppler interrogation. Left atrium grossly appears normal with no more than trivial MR. Right-sided chambers grossly normal. Trivial to mild TR. RV systolic pressure is estimated greater than or equal to 18 mmHg via the continuity equation. ECHOCARDIOGRAM REPORT [id number] NICOL BERRIOS SR TRANSINT:[id number] Voice Confirmation ID: [id number] DOCUMENT ID: [id number] GIUSEPPE LUCAS MD at 1351 CC: [id number] DICTATION DATE: 01/29/19 1202 BOILER RIVETER: 01/29/19 1226 ADM IN [place] [id number] [place] [id number]
[2019-01-29 14:25] VITALS: Ht 185.4 cm; Wt 119.5 kg
--- NOTE | 2019-01-29 14:32 | NUR ---
ADRIANA FROM CT HAD CALLED AND ASKED ABOUT DOING HIS CTA TOMORROW SINCE HE HAD CONTRAST TODAY ALREADY. I SPOKE WITH DR DOE WHO SAID DO IT IN THE MORNING AND ADRIANA IS AWARE
[2019-01-29 15:16] LABS: CKMB 1.6 U/L (0.0-3.6); CREATINE KINASE 136 UL (21-232); TROPONIN-I 0.035 ng/mL (0.000-0.060)
--- NOTE | 2019-01-29 15:18 | NUR ---
NEW ORDER DUE TO RECENT FALL, DIZZINESS AND C/O, FOR CT OF HEAD WITHOUT CONTRAST GIVEN PER SCARLETT PAYNE.
--- NOTE | 2019-01-29 16:18 | NUR ---
DR ONEAL HERE WANTS CTA OF THE HEAD TOMORROW, CT OF HEAD WITHOUT CONTRAST WAS CANCELLED. FAMILY AT BEDSIDE AND PT AWARE ALSO
--- NOTE | 2019-01-29 16:27 | NUR ---
TALKED WITH DR. TANG @2564, OKAY TO CANCEL CT HEAD WO CONTRAST FOR TODAY. ORDERING CTA HEAD W/WO CONTRAST TO BE DONE TOMORROW ALONG WITH CAROTID SCANS.
[2019-01-29 17:05] VITALS: BP 172/105
--- NOTE | 2019-01-29 19:20 | NUR ---
RECEIVED REPORT, WILL ASSUME CARE OF PT, SLEEPING ON R.SIDE, FAMILY IN ROOM, IV-LFA-SL, [id number], BED IS LOW, SRX2, CALL LIGHT IN REACH, WILL CONTINUE PLAN OF CARE
[2019-01-29 19:47] LABS: CKMB 1.4 U/L (0.0-3.6); CREATINE KINASE 131 UL (21-232); TROPONIN-I 0.032 ng/mL (0.000-0.060)
[2019-01-29 20:15] VITALS: BP 136/84
[2019-01-30 00:29] VITALS: BP 130/81
--- NOTE | 2019-01-30 00:55 | NUR ---
REQUESTING BLOODSUGAR TO BE CHECKED-65, GAVE ORANGEJUCIE AND GRAMCRACKERS AND PEANUTBUTTER
[2019-01-30 04:15] VITALS: BP 169/98
[2019-01-30 05:30] LABS: BASOPHILS 0.1 % (0-2); EOSINOPHILS 2.2 % (0-7); HEMATOCRIT 35.9 % (42.0-54.0); HEMOGLOBIN 11.4 g/dL (13.5-17.5); IMMATURE GRANULOCYTES 0.5 % (0-5); LYMPHOCYTES 31.9 % (15-50); MCH 27.8 pg (26.0-34.0); MCHC 31.8 g/dL (31.0-37.0); MCV 87.6 fL (80.0-100.0); MONOCYTES 8.5 % (2-11); NEUTROPHILS 56.8 % (40-80); PLATELET COUNT 328 10x3/uL (130-400); RDW 15.5 % (11.5-14.5); WBC 7.7 10x3/uL (4.8-10.8)
[2019-01-30 05:49] LABS: CALC OSMOLALITY 281 mosm/kg (275-300); CALCIUM 8.6 mg/dL (8.5-10.1); CARBON DIOXIDE 29.3 mmol/L (21.0-32.0); CHLORIDE - SERUM 101 mmol/L (98-107); POTASSIUM - SERUM 3.9 mmol/L (3.5-5.1); SODIUM 139 mmol/L (136-145); UREA NITROGEN 11 mg/dL (7-18); eGFR NON AFRICAN AMERICAN 79 mL/min (90-120)
[2019-01-30 05:53] LABS: GLUCOSE 195 mg/dL (74-106)
--- NOTE | 2019-01-30 07:07 | NUR ---
PT UP TO SIDE OF BED, A/O X4, RESP EVEN AND NONLABORED ON 3L. LT FA IV SL. PT DENIES ANY NEEDS AT THIS TIME. CALL LIGHT IN REACH, NAD NOTED, WILL CONITNUE PLAN OF CARE.
[2019-01-30 08:19] VITALS: BP 158/89
--- NOTE | 2019-01-30 08:44 | NUR ---
AM MEDS GIVEN AT THIS TIME. THEN PT NEEDS TO BE NPO FOR CTA OF HEAD. PT DENIES ANY NEEDS AT THIS TIME, CALL LIGHT IN REACH, NAD NOTED, WILL CONTINUE TO MONITOR.
--- NOTE | 2019-01-30 08:53 | NUR ---
NORCO GIVEN FOR PAIN LEVEL OF 10/10.
[2019-01-30 11:43] VITALS: BP 133/76
--- NOTE | 2019-01-30 11:54 | NUR ---
BLOOD SUGAR OF 293, 6UNITS OF HUMULIN GIVEN PER S/S. ALSO GAVE 1MG OF DILAUDID FOR PAIN LEVEL OF 8/10. PT DENIES ANY OTHER NEEDS AT THIS TIME. CALL LIGHT IN REACH, NAD NOTED, WILL CONTINUE TO MONITOR.
--- NOTE | 2019-01-30 15:20 | NUR ---
PT RESTING COMFORTABLY IN BED WITH EYES CLOSED, SPOUSE AT BEDSIDE, NAD NOTED, WILL CONTINUE TO MONITOR.
[2019-01-30 16:00] VITALS: BP 141/77
--- NOTE | 2019-01-30 19:15 | NUR ---
RECEIVED REPORT,WILL ASSUME CARE OF PT, PT IS SLEEPING, NO DISTRESS NOTICED AT THIS TIME, IV-LFA-SL, [id number], AT BEDSIDE, BED IS LOW, SRX2, CALL LIGHT IN REACH, WILL CONTINUE PLAN OF CARE
[2019-01-30 20:33] VITALS: BP 143/101
[2019-01-31 00:35] VITALS: BP 124/83
--- NOTE | 2019-01-31 04:06 | NUR ---
I have reviewed this patient and I concur with the Shift Assessment completed by the Licensed Practical Nurse today this shift.
[2019-01-31 04:41] VITALS: BP 139/76
[2019-01-31 05:25] LABS: BASOPHILS 0 % (0-2); EOSINOPHILS 2.7 % (0-7); HEMATOCRIT 34.4 % (42.0-54.0); HEMOGLOBIN 11.1 g/dL (13.5-17.5); IMMATURE GRANULOCYTES 0.3 % (0-5); LYMPHOCYTES 35.5 % (15-50); MCH 28.2 pg (26.0-34.0); MCHC 32.3 g/dL (31.0-37.0); MCV 87.5 fL (80.0-100.0); MEAN PLATELET VOLUME 9.1 fL (7.4-10.4); MONOCYTES 9.9 % (2-11); NEUTROPHILS 51.6 % (40-80); PLATELET COUNT 317 10x3/uL (130-400); RBC 3.93 10x6/uL (4.20-6.10); RDW 15.3 % (11.5-14.5); WBC 6.4 10x3/uL (4.8-10.8)
[2019-01-31 05:40] LABS: CALC OSMOLALITY 281 mosm/kg (275-300); CALCIUM 8.7 mg/dL (8.5-10.1); CARBON DIOXIDE 30.6 mmol/L (21.0-32.0); CHLORIDE - SERUM 101 mmol/L (98-107); GLUCOSE 231 mg/dL (74-106); POTASSIUM - SERUM 3.5 mmol/L (3.5-5.1); SODIUM 138 mmol/L (136-145); UREA NITROGEN 9 mg/dL (7-18); eGFR NON AFRICAN AMERICAN 79 mL/min (90-120)
--- NOTE | 2019-01-31 07:30 | NUR ---
PT RESTING. FAMILY AT BEDSIDE. DENIES NEEDS OR PAIN AT THIS TIME. RR EVEN AND UNLABORED. BED IN LOWEST POSITION. CALL LIGHT WITHIN REACH. WILL COTNINUE TO MONITOR.
[2019-01-31 08:03] VITALS: BP 154/94
--- NOTE | 2019-01-31 10:54 | NUR ---
I have reviewed this patient and I concur with the Shift Assessment completed by the Licensed Practical Nurse today this shift.
[2019-01-31 12:02] VITALS: BP 150/84
[2019-01-31 16:36] VITALS: BP 136/77
--- NOTE | 2019-01-31 19:02 | NUR ---
INITIAL ROUNDS COMPLETED. NO DISTRESS NOTED. CALL LIGHT WITHIN REACH.
--- NOTE | 2019-01-31 19:46 | NUR ---
ASSESSMENT COMPLETED. IV TO LFA SL. SR PER CM HR 80. ALERT AND ORIENTED TO PERSON, PLACE AND TIME. EDGAR. LUNGS DIMINISHED IN BASES BILAT. 02 2LNC. PT STATES HE JUST DOESN'T FEEL GOOD. SR UP X2, CALL LIGHT WITHIN REACH.
[2019-01-31 20:00] VITALS: BP 137/72
--- NOTE | 2019-01-31 22:36 | NUR ---
PM MEDS GIVEN INCLUDING NORCO PO FOR C/O CP WITH COUGH. PM FSBS 300. 6 UNITS REG INSULIN GIVEN SUB-Q TO UPPER R ARM PER S/S. PT CURRENTLY RESTING WITH EYES CLOSED. RESP EVEN AND REGULAR. SR UP X2, CALL LIGHT WITHIN REACH.
--- NOTE | 2019-02-01 00:04 | NUR ---
PT RESTING WITH EYES CLOSED. RESP EVEN AND REGULAR. SR UP X2, CALL LIGHT WITHIN REACH.
--- NOTE | 2019-02-01 01:59 | NUR ---
PT RESTING WITH EYES CLOSED. RESP EVEN AND REGULAR. SR UP X2, CALL LIGHT WITHIN REACH.
[2019-02-01 04:00] VITALS: BP 117/42
--- NOTE | 2019-02-01 04:11 | NUR ---
NORCO PO GIVEN FOR C/O CP WITH COUGH. CALL LIGHT WITHIN REACH.
[2019-02-01 05:39] LABS: BASOPHILS 0.2 % (0-2); EOSINOPHILS 2.3 % (0-7); HEMATOCRIT 35.2 % (42.0-54.0); HEMOGLOBIN 11.3 g/dL (13.5-17.5); IMMATURE GRANULOCYTES 0.4 % (0-5); LYMPHOCYTES 39.8 % (15-50); MCHC 32.1 g/dL (31.0-37.0); MCV 87.3 fL (80.0-100.0); MEAN PLATELET VOLUME 9.2 fL (7.4-10.4); MONOCYTES 12.4 % (2-11); NEUTROPHILS 44.9 % (40-80); PLATELET COUNT 340 10x3/uL (130-400); RBC 4.03 10x6/uL (4.20-6.10); RDW 15.2 % (11.5-14.5); WBC 5.7 10x3/uL (4.8-10.8)
[2019-02-01 05:47] LABS: CALC OSMOLALITY 285 mosm/kg (275-300); CALCIUM 8.6 mg/dL (8.5-10.1); CHLORIDE - SERUM 101 mmol/L (98-107); GLUCOSE 245 mg/dL (74-106); POTASSIUM - SERUM 3.7 mmol/L (3.5-5.1); SODIUM 139 mmol/L (136-145); eGFR NON AFRICAN AMERICAN 79 mL/min (90-120)
[2019-02-01 05:51] LABS: UREA NITROGEN 12 mg/dL (7-18)
--- NOTE | 2019-02-01 06:25 | NUR ---
VSS THROUGHOUT NIGHT. SR PER CM. PT STATED NORCO HELPS CP WITH COUGH. NEEDS MET; WILL CONTINUE TO MONITOR.
--- NOTE | 2019-02-01 07:36 | NUR ---
PT RESTING. RR EVEN AND UNLABORED. DENIES NEEDS AT THIS TIME. ORIENTED X4. BED IN LOWEST POSITION. CALL LIGHT WITHIN REACH. WILL CONTINUE TO MONITOR.
[2019-02-01 08:00] VITALS: BP 112/79
[2019-02-01] MEDS ORDERED: FLUTICASONE PRO16 GM NASAL (11:08)
--- NOTE | 2019-02-01 12:23 | NUR ---
D/C PAPERWORK REVIEWED WITH PT AND SPOUSE. VERBALIZED UNDERSTANDING AND NO FURTHER QUESTIONS AT THIS TIME. IV D/C WITH CATHETER TIP INTACT. MONITOR REMOVED AND RETURNED TO EDGING MACHINE OPERATOR. PT GETTING DRESSED AND INSISTED ON AMBULATING ON HIS OWN TO THE CAR.
--- NOTE | 2019-02-01 14:15 | MORECARE ---
CASE MANAGEMENT DISCHARGE SUMMARY PATIENT: NICOL BERRIOS SR UNIT: [id number] ADM DATE: 01/29/19 AGE: 68 : 51 SEX: M ROOM/BED: D.2130 AUTHOR: KENDRA,DOC PHYSICIAN: REFERRING PHYSICIAN: YANCI ONEAL MD DATE OF SERVICE: 02/01/19 Discharge Plan Patient Name: NICOL BERRIOS Facility: [facility]:[place] : 1950 Planned Disposition: Home Anticipated Discharge Date: 02/01/19 Discharge Date: 02/01/2019 Expected LOS: 3 Initial Reviewer: [email or web address] Initial Review Date: 02/01/2019 Generated: 02/01/19 3:15 pm Comments DCP- Discharge Planning Updated by [id number]: Jorden Guidry on 02/01/19 1:[address] Patient Name: NICOL BERRIOS Admission Status: ER Accout number: [id number] Admission Date: 01-29-2019 : 1950 Admission Diagnosis: Attending: YANCI ONEAL Current LOS: 3 Anticipated DC Date: 02-01-2019 Planned Disposition: Home Primary Insurance: [employer] Discharge Planning Comments: CM MET WITH PT AND SIGNFICANT OTHER IN ROOM TO DISCUSS DISCHARGE PLANNING AND NEEDS. NICOL BERRIOS provided verbal consent to discuss current and ongoing needs with/in the presence of: SIGNIFICANT OTHER, MARLA. PT REPORTS LIVING AT HOME INDEPENDENTLY WITH HIS "SIDEKICK", MARLA. PT HAS NEBULIZER, HOME OXYGEN AND A CANE FROM MEDICAL EQUIPMENT PROVIDER IN [place]. PT HAS AND NO OUTSIDE SERVICES ASSISTING IN THE HOME. CM DISCUSSED AVAILABILITY OF HOME HEALTH, REHAB SERVICES AND MEDICAL EQUIPMENT. PT DENIES DISCHARGE NEEDS, REPORTS HIS SIGNIFICANT OTHER IS HERE TO PICK HIM UP FOR DISCHARGE HOME. IMPORTANT MESSAGE FROM MEDICARE PROVIDED AND EXPLAINED. AUTOCAD DESIGNER NURSE NOTIFIED. Wrapper Hands Sprayer: Jorden Guidry DCPIA - Discharge Planning Initial Assessment Updated by [id number]: Jorden Guidry on 02/01/19 2:11 pm * Is the patient Alert and Oriented? Yes * How many steps to enter\\exit or inside your home? NONE * PCP DR. SMITH * Pharm[facility] [address] * Preadmission Environment Home with Family * ADLs Independent * Equipment Cane Nebulizer Oxygen * Other Equipment MEDICAL EQUIPMENT PROVIDER IN [place] HOME OXYGEN ONLY * List name and contact numbers for known caregivers / representatives who currently or will assist patient after discharge: ALEX VALENCIA OTHER, * Verbal permission to speak to the caregivers and representatives has been obtained from the patient. Yes * Community resources currently utilized None * Please name any agencies selected above. NONE * Additional services required to return to the preadmission environment? No * Can the patient safely return to the preadmission environment? Yes * Has this patient been hospitalized within the prior 30 days at any hospital? No Coverage Notice Reviewer: [id number] Elijah Guidry Notice Issued Date-Time: 02/01/2019 12:05 Notice Type: IM Discharge Notice Notice Delivered To: Patient Relationship to Patient: Vp Outcomes Name: Delivery Method: HAND - Hand Delivered Norma Days: Prior Verbal Notification: Recipient Understood Notice: Yes Recipient Signature: Yes Med Rec Note Co-signed by Attending: Coverage Notice Comment: Patient Name: NICOL BERRIOS Page [phone] at 1415 All edits/amendments must be made on the electronic document DICTATION DATE: 02/01/19 141 QUICK PRINT OPERATOR: ED 02/01/19 141 RPT#: [id number] DC DATE:02/01/19 STATUS: DIS IN [facility] [address] [place] [address] END OF REPORT
== END 2019-02-01 13:48 | disposition home or self-care (01) | DRG 202 ==
LOC: D.ER 04:34 → D.M2 06:44
PROVIDERS: Family Medicine; Internal Medicine Cardiovascular Disease; ADMIT Internal Medicine Nephrology; ATTEND Internal Medicine Nephrology
DX: J40 Bronchitis, not specified as acute or chronic (principal); I50.23 Acute on chronic systolic (congestive) heart failure; N17.9 Acute kidney failure, unspecified; E87.1 Hypo-osmolality and hyponatremia; I42.9 Cardiomyopathy, unspecified; I11.0 Hypertensive heart disease with heart failure; I25.10 Atherosclerotic heart disease of native coronary artery without angina pectoris; R42 Dizziness and giddiness; E78.5 Hyperlipidemia, unspecified; D64.9 Anemia, unspecified; E11.9 Type 2 diabetes mellitus without complications; R55 Syncope and collapse

== ENCOUNTER 2019-04-04 19:12 | Observation (INO) | payer MEDICARE ==
[~2019-04-04] VITALS: Ht 185.4 cm; Wt 119.2 kg
--- NOTE | ~2019-04-04 | OP ---
PATIENT NAME: NICOL BERRIOS SR MEDICAL RECORD: [id number] :52 LOCATION:D.M2 D.2123 ADMISSION DATE:04/04/19 SURGEON: GIUSEPPE LUCAS MD DATE OF OPERATION: 04/05/2019 PROCEDURE: Left heart catheterization, selective coronary angiography, plus PTCA stent, right femoral artery approach. CATHETERS: A 5-Swiss sheath, 5/4 left and right Deepak, 5/4 pig. T The procedure was well tolerated. The patient was returned to uribe. Sheath was removed. ExoSeal device was placed. FINDINGS: Left ventriculography in 30-degree PADILLA view shows global hypokinesis. Overall, function reduced at 30% to 35%. CORONARY ANATOMY: LEFT MAIN: Left main is free of disease. LAD: Has luminal irregularities. Previously placed stent is widely patent. CIRCUMFLEX: Circumflex after takeoff of first OM has a basically 90% subtotal stenosis with GAYATRI flow 2 distally, obviously a culprit. RIGHT CORONARY ARTERY: Previously placed stent is widely patent. IMPRESSION: No evidence of restenosis. 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 PLAN: Intervention of the circumflex momentarily. DESCRIPTION OF PROCEDURE: A 5-Swiss sheath was exchanged for a 6-Swiss sheath. XB LAD guiding catheter provided good guide catheter support followed by a 300 cm Whisper wire was placed across the tightly occluded circumflex. Predeployment balloon 2.5 x 15 mm Fannin balloon. Stent deployed was a 3.0 x 15 mm Troy drug-eluting stent. Final angiography shows excellent resolution of 90% stenosis. No significant residual. GAYATRI flow improved from 2 to 3. Sheath closed with ExoSeal device. Plavix was loaded in the lab. TRANSINT:[id number] Voice Confirmation ID: [id number] DOCUMENT ID: [id number] GIUSEPPE LUCAS MD CC: [id number] DICTATION DATE: 04/05/19 0952 SUPERVISOR CONTINGENTS: 04/05/19 1645 ADM IN [facility] [address] [place] [address]
--- NOTE | ~2019-04-04 | HEMODYNAMI ---
PATIENT:NICOL BERRIOS SR MEDICAL RECORD: [id number] : 52 LOCATION:[facility] D.2123 [facility]# [id number] ADMISSION DATE: 04/04/19 Generatedon:04/05/20199:49 Patient name: NICOL BERRIOS Patient #: [id number] SSN: [id number] : 1950 Date of study: 04/05/2019 Page: Of Hemodynamic Procedure Report Patient Data Patient Demographics Procedure consent was obtained First Name: NICOL Gender: Male Last Name: YASH Suffix: Patient #: [id number] : 1950 Age: 68 year(s) SSN: [id number] Race: Black Additional ID: [id number] Contact details Address: [address] [place] [address] State: [place] City: [facility] [place] Zip code: [address] Past Medical History Allergies: No known allergies Admission Admission Data Admission Date: 04/04/2019 Admission Time: 21:44 Arrival Date: 04/05/2019 Arrival Time: 0:00 Admit Source: Other Insurance Payor: Medicare Room #: D.2123 [facility] #: [id number] Height (in.): 73 BSA: 2.42 (m2) Height (cm.): 185.42 BMI: 34.64 (kg/m2) Weight (lbs.): 262.57 Weight (kg.): 119.1 Lab Results Lab Result Date: 04/05/2019 Lab Result Time: 0:00 Biochemistry Name Units Result Min Max BUN mg/dl 18 --(---*)-- 7 18 Creatinine mg/dl 1.5 --(----)-* 0.6 1.3 CBC Name Units Result Min Max Hemoglobin g/dl 11.6 *-(----)-- 13.5 17.5 Procedure Procedure Types Cath Procedure Diagnostic Procedure LHC LH w/Coronaries Sedation Charges Moderate Sedation up to 30 minutes PCI Procedure Coronary Stent Coronary Stent Initial Procedure Description Procedure Date Procedure Date: 04/05/2019 Procedure Start Time: 9:22 Procedure End Time: 9:44 Procedure Staff Name Function Bret Valencia MD Performing Physician Flor Triplett RT Monitor Ruba Dolan RN Nurse Sherie Chester RT Scrub Indication Chest pain Procedure Data Cath Procedure Fluoroscopy Diagnostic fluoroscopy Total fluoroscopy Time: 4.2 time: 4.2 min min Diagnostic fluoroscopy Total fluoroscopy dose: dose: 1828 mGy 1828 mGy Contrast Material Contrast Material Type Amount (ml) Isovue 370 130 Entry Location Entry Primary Successful Side Size Upsize Upsize Entry Closure Succes sful Closure Location (Fr) 1 (Fr) 2 (Fr) Remarks Device Remarks Femoral Right 5 Fr 6 Fr Exoseal artery Short Estimated blood loss: 10 ml Diagnostic catheters Device Type Used For End Catheter Placement MULTIPACK JL 4.0 5Fr Procedure catheter MULTIPACK 3DRC 5Fr Procedure catheter MULTIPACK Pigtail 5 Fr Ventriculography catheter Procedure Complications No complications Procedure Medications Medication Administration Route Dosage 0.9% NaCl I.V. 100 ml/hr Oxygen etCO2 Nasal cannula 2 l/min Lidocaine 2% added to field 20 Heparin Flush Bag added to field 2 bags (1000units/500ml NS) Plavix P.O. 75 mg Versed I.V. 2 mg Fentanyl I.V. 50 mcg Lopressor I.V. 5 mg Fentanyl I.V. 50 mcg Heparin Bolus I.V. 5000 units Hemodynamics Rest BSA: 2.42 (m2) HGB: 11.6 (g/dl) O2 Consumption: Estimated: 310.53 (ml/min) O2 Co nsumption indexed: Estimated:128.32 (ml/min/m) Heart Rate: 102 (bpm) Pressure Samples Time Site Value (mmHg) Purpose Heart Use Rate(bpm) 9:30 LV 144/19,22 Snapshot 65 Gradients Valve Time Site Site Mean SEP/DFP Peak To Heart Use 1 2 (mmHg) (sec/min) Peak Rate (mmHg) (bpm) Aortic 9:30 LV AO 86 Snapshots Pre Cath Intra NCS Post Cath Vital Signs Time Heart Resp SPO2 etCO2 NIBP (mmHg) Rhythm Pain Sedation Rate (ipm) (%) (mmHg) Status Level (bpm) 8:59:45 [address] 0 (11) 10(A) , No pain 9:00:28 106 20 98 40 169/118(150) ST 0 (11) 10(A) , No pain 9:04:54 93 20 96 31.8 166/96(146) NSR 0 (11) 10(A) , No pain 9:09:22 89 19 96 35.6 161/113(136) NSR 0 (11) 10(A) , No pain 9:13:53 87 15 98 40.9 159/90(136) NSR 0 (11) 10(A) , No pain 9:18:19 65 17 97 36.3 155/93(136) NSR 0 (11) 10(A) , No pain 9:22:43 92 16 99 42.4 162/105(131) NSR 0 (11) 10(A) , No pain 9:27:09 88 16 99 37.8 156/93(132) NSR 0 (11) 10(A) , No pain 9:31:27 86 16 97 37.1 145/100(124) NSR 0 (11) 9(A) , No pain 9:35:46 76 15 98 25.7 154/90(120) NSR 0 (11) 9(A) , No pain 9:40:04 87 15 97 28.7 140/94(116) NSR 0 (11) 9(A) , No pain 9:44:20 82 16 100 50.7 158/98(120) NSR 0 (11) 10(A) , No pain Medications Time Medication Route Dose Verified Delivered Reason Notes Effectiveness by by 8:58:05 0.9% NaCl I.V. 100 Bret Yeh used for ml/hr AnnieCristobal Dolan procedure MD VALDES 8:58:11 Oxygen etCO2 2 Bret Rbua used for Nasal l/min [facility] cannula MD VALDES 8:58:16 Lidocaine 2% added 20ml Bret Queen for local to vial [facility] anesthetic field MD IGLESIAS 8:58:20 Heparin Flush added 2 Bret Bret used for Bag to bags Annie [facility] procedure (1000units/500ml field MD IGLESIAS NS) 8:58:30 Plavix P.O. 75 mg Bret Yeh for [facility] Dolan antiplatelet MD VALDES therapy 9:18:18 Versed I.V. 2 mg Bret Ruba for sedation [facility] Crist[facility] Dolan MD RN 9:18:26 Fentanyl I.V. 50 Bret Yeh for sedation mcg [facility] Cristobal Dolan MD RN 9:26:19 Lopressor I.V. 5 mg Bret Yeh for [facility] Cristobal Dolan hypertension RN 9:29:30 Fentanyl I.V. 50 Bret Arteagaa for sedation mcg [facility] Cristobal Dolan MD RN 9:33:27 Heparin Bolus I.V. 5000 Bret Yeh for verifi ed units [facility] Cristobal Dolan anticoagulation w/ Dr. IGLESIAS RN [facility] Procedure Log Time Note 8:32:45 Informed consent obtained and on chart 8:33:52 Arrival Date: 04/05/2019 12:00:00 AM 8:34:01 Admit Source: Other 8:34:55 Insurance Payor : Medicare 8:35:03 Patient Height : 73 inches 8:35:08 Patient Weight : 262.57 lbs 8:35:47 Lab Result : Hemoglobin 11.6 g/dl 8:35:47 Lab Result : Creatinine 1.5 mg/dl 8:35:47 Lab Result : BUN 18 mg/dl 8:36:01 Diagnostic Cath Status : Urgent 8:36:44 Indication : Chest pain 8:36:59 Procedure Status Urgent Heart Cath (IP). 8:37:14 Flor HEREDIA(R) sent for patient. Start room use. 8:37:16 Time tracking: Regular hours (M-F 7:00 - 5:00) 8:37:21 Plan of Care:Hemodynamics will remain stable., Cardiac rhythm will remain stable., Comfort level will be maintained., Respiratory function will remain adequate., Patient/ family verbilizes understanding of procedure., Procedure tolerated without complication., Recovers from procedure without complications.. 8:37:41 Lab results completed and on chart. 8:40:32 Risk of Mortality: .1 8:40:36 Risk of blood transfusion: 3.8 8:40:39 Risk of EFREM: 5.5 8:40:51 2) 60-89 Mildly reduced kidney function, and other findings (as for stage 1) point to kidney disease. 8:41:40 Maximum allowable contrast dose (3.7 X eGFR X 0.75)166 ml. 8:57:55 Vital chart was started 8:58:05 0.9% NaCl 100 ml/hr I.V. was administered by Ruba Dolan RN; used for procedure; Verbal order read back and verified. 8:58:11 Oxygen 2 l/min etCO2 Nasal cannula was administered by Ruba Dolan RN; used for procedure; Verbal order read back and verified. 8:58:16 Lidocaine 2% 20ml vial added to field was administered by Bret Valencia MD; for local anesthetic; Verbal order read back and verified. 8:58:20 Heparin Flush Bag (1000units/500ml NS) 2 bags added to field was administered by Bret Valencia MD; used for procedure; Verbal order read back and verified. 8:58:30 Plavix 75 mg P.O. was administered by Ruba Dolan RN; for antiplatelet therapy; Verbal order read back and verified. 9:03:06 Patient received from Med II to CCL 2 Alert and oriented. Tansferred to table in Supine position. 9:03:07 Warm blankets applied, and tammy hugger turned on for patient comfort. 9:03:08 Correct patient and procedure confirmed by team. 9:03:09 ECG and BP/O2 sat monitors applied to patient. 9:03:10 Baseline sample Acquired. 9:03:12 Full Disclosure recording started 9:03:20 H&P Date Dictated: 04/05/2019 Within 30 days and on chart., H&P Addendum completed by physician on day of procedure. (MUST COMPLETE FOR ALL OUTPATIENTS). 9:03:22 Pre-procedure instructions explained to patient. 9:03:26 Family in patients room. 9:03:43 Patient NPO since Midnight. 9:03:51 Patient allergic to No known allergies 9:03:53 Is the patient allergic to Iodine/contrast media? No. 9:03:55 Was the patient premedicated? Yes 9:03:56 Is patient on blood thinner?Yes 9:04:00 ACC The patient was administered the following blood thiners within the last 24 hours: ACCPlavix 9:04:08 Patient diabetic? Yes. 9:04:10 If diabetic: On Metformin? Yes 9:04:13 If on Metformin: Last Dose? 04/04/2019 9:04:20 Snore? Yes 9:04:21 Sleep apnea? Yes 9:04:26 Airway obstruction? No ? 9:05:06 Dentures? No ? 9:05:24 IV patent on arrival in left forearm with 0.9% NaCl at [facility]. 9:05:33 Right groin area was prepped with chlora-prep and draped in sterile fashion 9:05:34 Alarms reviewed by R. N. 9:05:35 Sharps counted by scrub and verified by R.N. 9:09:13 Zero performed for pressure channel P1 9:12:42 Zero performed for pressure channel P1 9:13:10 Physician arrived 9:17:57 --------ALL STOP TIME OUT------ 9:17:58 Final Timeout: patient, procedure, and site verified with staff and physician. All members of the team are in agreement. 9:18:00 Right groin site verified by team. 9:18:04 Fire Safety Assessment: A--An alcohol-based skin anteseptic being used preoperatively., C--Open oxygen or nitrous oxide is being used., D--An ESU, laser, or fiber-optic light is being used. 9:18:08 Physical assessment completed. ASA score P 3 - A patient with severe systemic disease as per Bret Valencia MD. 9:18:12 Sedation plan: IV Moderate Sedation Medication:Versed, Fentanyl 9:18:18 Versed 2 mg I.V. was administered by Ruba Dolan RN; for sedation; Verbal order read back and verified. 9:18:19 Use device set Femoral Dx 9:18:20 ACIST Syringe (04620) opened to sterile field. 9:18:21 Medline Cath Pack ([id number]) opened to sterile field. 9:18:21 Bag Decanter (2001S) opened to sterile field. 9:18:22 ACIST Hand Control (05154) opened to sterile field. 9:18:23 DIAGNOSTIC Multipack 5Fr catheter set ([id number]) opened to sterile field. 9:18:23 ACIST Manifold (34911) opened to sterile field. 9:18:25 Tegaderm 4 x 4 (1626W) opened to sterile field. 9:18:26 Fentanyl 50 mcg I.V. was administered by Ruba Dolan RN; for sedation; Verbal order read back and verified. 9:18:27 JUANYALD Guide Wire (545-613) opened to sterile field. 9:18:27 SHEATH 5FR Sparks (CJO116) opened to sterile field. 9:22:28 Procedure started. 9:22:54 Local anesthetic to right femoral artery with Lidocaine 2% by Bret Valencia MD.INITIAL ACCESS ONLY 9:23:06 A 5 Fr sheath was inserted into the Right Femoral artery 9:24:36 A MULTIPACK JL 4.0 5Fr catheter was advanced over the wire and used for Procedure. 9:24:40 LCA angiography performed. 9:26:19 Lopressor 5 mg I.V. was administered by Ruba Dolan RN; for hypertension; Verbal order read back and verified. 9:27:50 Catheter removed. 9:28:00 A MULTIPACK 3DRC 5Fr catheter was advanced over the wire and used for Procedure. 9:28:02 RCA angiography performed. 9:28:59 Catheter removed. 9:29:05 A MULTIPACK Pigtail 5 Fr catheter was advanced over the wire and used for Ventriculography. 9:29:12 LV angiography performed. 9:29:30 Fentanyl 50 mcg I.V. was administered by Ruba Dolan RN; for sedation; Verbal order read back and verified. 9:30:34 EF : 35 % 9:30:35 Catheter removed. 9:31:05 GUIDE 6FR XBLAD 3.5 catheter ([id number]) opened to sterile field. 9:31:06 WHISPER 300cm guide wire ([id number]) opened to sterile field. 9:31:07 SHEATH 6FR Sparks (EQE912) opened to sterile field. 9:31:08 INFLATOR Merit BasixCompak (WI0125) opened to sterile field. 9:31:25 Proceeding to intervention. 9:31:35 Sheath upsized to a 6 Fr Short. 9:32:10 6 Fr XBLAD3.5 guide catheter was inserted over the wire 9:32:31 Whisper' wire advanced. 9:33:27 Heparin Bolus 5000 units I.V. was administered by Ruba Dolan RN; for anticoagulation; verified w/ Dr. Bundy Verbal order read back and verified. 9:33:54 Pre PCI Site: [place] mCirc has 90% stenosis. 9:37:09 Inflate balloon Inflation number: 1 A EMERGE OTW 2.5 x 15 balloon ([id number]) was prepped and advanced across the Mid CX 90, then inflated to 12 TREVOR for 0:15 (min:sec) . 9:37:51 Balloon removed over the wire. 9:41:17 Place stent Inflation Number: 2 A NOY RX 3.0 x 15 stent ([id number]) was prepped and advanced across the Mid CX 90. The stent was deployed at 14 TREVOR for 0:24 (min:sec) 0. 9:41:52 EXOSEAL 6Fr (EX600) opened to sterile field. 9:42:02 Stent catheter was removed intact over wire. 9:42:03 Wire removed. 9:42:04 Guide catheter removed. 9:42:13 Sheath removed intact; hemostasis achieved with Exoseal to the Right Femoral artery. 9:42:20 Procedure ended.(Physican Out) 9:42:32 Fluoroscopy time 04.20 minutes. 9:42:36 Fluoroscopy dose: 1828 mGy 9:42:36 Flurop Dose total: 1828 9:42:41 Dose Area Product 58882 mGy/cm. 9:42:52 Contrast amount:Isovue 370 130ml. 9:42:54 Maximum allowable dose exceeded? No. 9:42:56 Insertion/operative site no bleeding no hematoma. 9:43:00 Post-op/insertion site Right Femoral artery dressed using a 4 x 4 and Tegaderm. 9:43:02 Post Procedure Pulses reassessed and unchanged 9:43:08 Post procedure rhythm: unchanged. 9:43:11 Estimated blood loss: 10 ml 9:43:18 Post procedure instruction explained to patient.Patient verbalizes understanding. 9:43:50 Procedure type changed to Cath procedure, Diagnostic procedure, LHC, [facility] w/Coronaries, Sedation Charges, Moderate Sedation up to 30 minutes, PCI procedure, Coronary Stent, Coronary Stent Initial 9:43:53 Procedure and supply charges have been captured, reviewed, submitted and are correct. 9:44:22 Procedure Complication : No complications 9:44:25 Vital chart was stopped 9:44:29 [facility] Findings: MVD- PCI performed (see procedure note) 9:44:31 Operative report dictated upon procedure completion. 9:44:32 See physician's report for complete and final results. 9:44:34 Report given to [facility]. 9:44:45 Patient transfered to Med II with Bed. 9:44:46 ACT drawn and resulted at 143 seconds. (normal therapeutic range 180-240 seconds). 9:44:47 Full Disclosure recording stopped 9:44:47 Procedure ended. 9:44:53 End room use (Document Last) 9:45:31 End room use (Document Last) 9:47:06 End room use (Document Last) Intervention Summary Intervention Notes Time ActionType Lesion and Equipment Used Action# Pressure Duration Attributes 9:37:09 Inflate Mid CX EMERGE OTW 2.5 1 12 00:15 balloon x 15 balloon ([id number]) 9:41:17 Place stent Mid CX NOY RX 3.0 x 2 14 00:24 15 stent ([id number]) Device Usage Item Name Manufacture Quantity Catalog Number Hospital Part Current Minimal Lot# / Charge Number Stock Stock Serial# Code ACIST Syringe Acist 1 28173 903998 030554 509461 20 (91976) Medical Systems Inc Bag Decanter Microtek 1 2001S 519614 80684 586811 5 (2001S) Medical Inc. Medline Cath Medline 1 [id number] 444692 82153 822299 5 Pack ([id number]) ACIST Hand Acist 1 85596 963393 578818 333724 5 Control Medical (45177) Systems Inc ACIST Manifold Acist 1 13062 240938 642046 666037 5 (40102) Medical Systems Inc DIAGNOSTIC Cardinal 1 IH7048 243307 17109 644882 30 Multipack 5Fr Health catheter set (CX2889) Tegaderm 4 x 4 3M 1 1626W 076014 090958 792302 5 (1626W) SHEATH 5FR Terumo 1 PKI693 620134 241164 713477 5 Sparks (VWC417) EMERALD Guide Cardinal 1 502-455 444421 645062 562643 5 Wire (502-455) Health MULTIPACK JL Cardinal 1 777932 5 4.0 5Fr Health catheter MULTIPACK 3DRC Cardinal 1 219720 5 5Fr catheter Health MULTIPACK Cardinal 1 764640 5 Pigtail 5 Fr Health catheter GUIDE 6FR Cardinal 1 [id number] 032231 606064 479908 10 XBLAD 3.5 Health catheter (02823811) WHISPER 300cm Vinson 1 [id number] 850157 358241 533134 5 guide wire Vascular ([id number]) SHEATH 6FR Terumo 1 BQH348 382021 856686 062121 40 Sparks (LCL640) INFLATOR Merit Merit 1 KV8028 945967 053410 754755 15 BasixCommak Medical (AH9427) EMERGE OTW 2.5 [place] 1 [id number] 596909 449719 181555 5 [id number] x 15 balloon Scientific ([id number]) NOY RX 3.0 x Medtronic 1 [id number] 412010 8380573 129587 5 [id number] 15 stent ([id number]) EXOSEAL 6Fr Cardinal 1 EX600 023682 694398 959950 10 (EX600) Health Signature Audit Norco Stage Time Signature Unsigned Intra-Procedure 04/05/2019 Flor Triplett 9:45:31 AM RT(R) Intra-Procedure 04/05/2019 Ruba Dolan 9:47:06 AM RN Intra-Procedure 04/05/2019 Bret Pearce 9:48:56 AM Cristobal IGLESIAS Signatures Performing Physician : Signature : Bret Valencia MD Date : Time : Monitor : Flor Triplett Signature : RT Date : Time : Nurse : Ruba Dolan RN Signature : Date : Time : [facility] [address] [place] [address]
--- NOTE | ~2019-04-04 | CN ---
PATIENT NAME:NIOCL BERRIOS SR MEDICAL RECORD: [id number] : 52 LOCATION:[facility] D.2123 ADMIT DATE: 04/04/19 ACCOUNT: [id number] CONSULTING PHYSICIAN: GIUSEPPE LUCAS MD REFERRING PHYSICIAN: GIUSEPPE FLEMING MD DATE OF CONSULTATION: 04/05/2019 HISTORY OF PRESENT ILLNESS: This is a 68-year-old gentleman with a history of coronary artery disease, status post stent in LAD and progressive angina over the past 2-3 weeks, was seeing Dr. Isbell in the office, was actually scheduled for angiography later this week; however, he had rest symptomology and relieved initially at home, presented to the ER. Further nitroglycerin and morphine relieved her pain. We are asked to see him concerning his cardiovascular status. PAST MEDICAL HISTORY: 1. History of cardiomyopathy. 2. Coronary artery disease as described above. 3. Diabetes mellitus. 4. Hypertension. 5. Hyperlipidemia. MEDICATIONS: Prior to admission include Flomax 0.4 mg p.o. daily, Plavix 75 daily, Lisinopril 40 every day, nitroglycerin as needed, Ranexa 500 b.i.d., pravastatin 40 every day, Lasix 20 daily, metformin 1 gram b.i.d., Glucotrol 10 b.i.d. SOCIAL HISTORY: Nonsmoker, nondrinker. Easily able to take care of his ADLs. No set exercise program. REVIEW OF SYSTEMS: The patient reports easy bruising but reports no swollen glands. The patient reports no fever, no night sweats, no significant weight gain, no significant weight loss. No significant exercise tolerance. The patient reports no dry eyes, no irritation, no vision change. Patient reports no difficulty hearing and no ear pain. Patient reports no frequent nose bleeds or nose and sinus problems. Patient reports on arm pain on exertion. No shortness of breath while lying down. No history of heart murmur. Patient reports no cough, no wheezing or coughing up blood. Patient reports no abdominal pain, no vomiting. Normal appetite. No diarrhea and not vomiting blood. No nausea and no constipation. Patient reports no incontinence. No difficulty urinating. No hematuria. No increased frequency. Patient reports no muscle aches. No weakness, no arthralgias, no back pain. No swelling of the extremities. Patient reports no abnormal mole, no jaundice, no rashes. Reports no loss of consciousness. No weakness and no numbness. No seizures, dizziness, or headaches. The patient reports no depression, no sleep disturbance, feeling safe in a relationship and no alcohol abuse. Patient reports on fatigue. Reports no runny nose or sinus pressure. No itching, no hives, and no frequent sneezing. PHYSICAL EXAMINATION: GENERAL: Pleasant gentleman in no acute distress, appears stated age. VITAL SIGNS: Blood pressure 150/94, pulse 60 and regular. HEENT: Normocephalic, atraumatic.. NECK: No JVD or bruit. HEART: Regular. CONSULT REPORT [id number] NICOL BERRIOS SR LUNGS: Dunlap clear. ABDOMEN: Soft, nontender. EXTREMITIES: Pulses 2+ with no edema. DIAGNOSTIC DATA: EKG shows left axis, poor R-wave progression, nonspecific ST-T changes. IMPRESSION: Acute coronary syndrome. Angiography, intervention based on above. TRANSINT:[id number] Voice Confirmation ID: [id number] DOCUMENT ID: [id number] GIUSEPPE LUCAS MD CC: [id number] DICTATION DATE: 04/05/1956 POWER BUILDER DEVELOPER: 04/05/19 1702 ADM IN [facility] [address] [place] [address]
[~2019-04-04 19:12] MED LIST changes: +FLUTICASONE PRO16 GM NASAL
[2019-04-04 19:54] LABS: BASOPHILS 0.2 % (0-2); HEMOGLOBIN 11.6 g/dL (13.5-17.5); IMMATURE GRANULOCYTES 0.3 % (0-5); LYMPHOCYTES 40.2 % (15-50); MCH 28.5 pg (26.0-34.0); MCHC 32.2 g/dL (31.0-37.0); MCV 88.5 fL (80.0-100.0); MEAN PLATELET VOLUME 8.9 fL (7.4-10.4); MONOCYTES 8.9 % (2-11); NEUTROPHILS 48.4 % (40-80); PLATELET COUNT 290 10x3/uL (130-400); RBC 4.07 10x6/uL (4.20-6.10); RDW 15.8 % (11.5-14.5); WBC 6.4 10x3/uL (4.8-10.8)
[2019-04-04 20:09] VITALS: BP 150/84
[2019-04-04 20:10] LABS: APTT 26.5 SECONDS (22.8-39.4); INR 0.99 (0.85-1.17)
[2019-04-04 20:12] LABS: CALC OSMOLALITY 290 mosm/kg (275-300); CALCIUM 8.8 mg/dL (8.5-10.1); CARBON DIOXIDE 29.5 mmol/L (21.0-32.0); CHLORIDE - SERUM 105 mmol/L (98-107); CREATININE - SERUM 1.5 mg/dL (0.6-1.3); GLUCOSE 242 mg/dL (74-106); POTASSIUM - SERUM 3.8 mmol/L (3.5-5.1); SODIUM 141 mmol/L (136-145); UREA NITROGEN 18 mg/dL (7-18); eGFR NON AFRICAN AMERICAN 49 mL/min (90-120)
[2019-04-04 20:14] VITALS: BP 111/73
[2019-04-04 20:35] LABS: ALBUMIN 3.5 g/dL (3.4-5.0); ALKALINE PHOSPHATASE 51 U/L (46-116); ALT (SGPT) 22 U/L (10-68); BILIRUBIN - TOTAL 0.17 mg/dL (0.2-1.3); CKMB 2.9 U/L (0.0-3.6); CREATINE KINASE 198 UL (21-232); MAGNESIUM - SERUM 1.6 mg/dL (1.8-2.4); PRO BNP 812 pg/mL (0-125); PROTEIN - SERUM 7.4 g/dL (6.4-8.2); TROPONIN-I 0.042 ng/mL (0.000-0.060)
[2019-04-04 22:46] VITALS: BP 142/88
--- NOTE | 2019-04-04 23:10 | NUR ---
ARRIVED VIA STRETCHER FORM ER WITH DX OF CP. HAS SOB ON EXERTION. AT BEDSIDE.
[2019-04-04] MEDS ORDERED: HYDROCHLOROTH12.5 M1 PO (23:37)
[2019-04-04] MEDS ORDERED: NITROSTAT0.4 MG SL (23:40)
[2019-04-04 23:50] VITALS: BP 130/82; BMI 34.6
[2019-04-05] MEDS ORDERED: GLUCOPHAGE1000 MG PO (00:01)
[2019-04-05] MEDS ORDERED: GLUCOPHAGE500 MG PO (00:02)
--- NOTE | 2019-04-05 00:32 | NUR ---
ADMISSION ASSESSMENT, HISTORY AND HOME MED LIST COMPLETED BY 2355 HRS. VSS. SR PER CM HR 75. ALERT AND ORIENTED TO PERSON, PLACE AND TIME. EDGAR. IV TO L HAND SL. O2 2LNC. LUNGS DIMINISHED IN BASES BILAT. TRACE PEDAL EDEMA. STATES CP NOW 05/31. DISCUSSED RATIONALE FOR NPO AFTER MIDNIGHT INTIL SEEN BY CARDIOLOGY. STATED UNDERSTANDING. FIANCEE AT BEDSIDE. SR UP X2,CALL LIGHT WITHIN REACH.
--- NOTE | 2019-04-05 02:20 | NUR ---
PT RESTING WITH EYES CLOSED. RESP EVEN AND REGULAR. SR UP X2, CALL LIGHT WITHIN REACH.
[2019-04-05 04:28] VITALS: BP 150/94
--- NOTE | 2019-04-05 04:57 | NUR ---
PT RESTING WITH EYES CLOSED. RESP EVEN AND REGULAR. SR UP X2, CALL LIGHT WITHIN REACH.
--- NOTE | 2019-04-05 05:55 | NUR ---
VSS THROUGHOUT NIGHT. SR PER CM. PT STATED HE RESTED WELL DURING SHIFT. DENIES ANY DISCOMFORT. NEEDS MET; WILL CONTINUE TO MONITOR.
--- NOTE | 2019-04-05 07:39 | NUR ---
ASSESSMENT DONE. DENIES NEEDS
--- NOTE | 2019-04-05 08:11 | NUR ---
I have reviewed this patient and I concur with the Shift Assessment completed by the Licensed Practical Nurse today this shift.
[2019-04-05 08:37] LABS: BASOPHILS 0.2 % (0-2); HEMATOCRIT 35.5 % (42.0-54.0); HEMOGLOBIN 11.3 g/dL (13.5-17.5); IMMATURE GRANULOCYTES 0.2 % (0-5); LYMPHOCYTES 40.7 % (15-50); MCH 28.3 pg (26.0-34.0); MCHC 31.8 g/dL (31.0-37.0); MEAN PLATELET VOLUME 9.3 fL (7.4-10.4); MONOCYTES 9.5 % (2-11); NEUTROPHILS 47.4 % (40-80); PLATELET COUNT 283 10x3/uL (130-400); RBC 3.99 10x6/uL (4.20-6.10); RDW 15.7 % (11.5-14.5); WBC 5.9 10x3/uL (4.8-10.8)
[2019-04-05 08:56] LABS: ANION GAP 12.2 mmol/L (8-16); CALCIUM 8.2 mg/dL (8.5-10.1); CARBON DIOXIDE 28.6 mmol/L (21.0-32.0); CHOL - HDL RATIO 3.7 ratio (2.3-4.9); CREATININE - SERUM 1.2 mg/dL (0.6-1.3); LDL-HDL RATIO 2.2 ratio (1.5-3.5); POTASSIUM - SERUM 3.8 mmol/L (3.5-5.1)
[2019-04-05 10:09] VITALS: BP 131/80
[2019-04-05 13:01] VITALS: BP 135/84
[2019-04-05 16:05] VITALS: Ht 185.4 cm; Wt 119.2 kg
[2019-04-05 16:30] LABS: % SATURATION 16 % (15-55); IRON 45 ug/dl (35-150); TOTAL IRON BIND CAPACITY 277 ug/dl (260-445); UNSAT IRON BIND CAPACITY 232 ug/dl (150-375)
[2019-04-05 16:55] VITALS: BP 124/81
--- NOTE | 2019-04-05 19:44 | NUR ---
D-DIMER 0.34, DC INSTRUCTIONS GIVEN TO PT AND GONE OVER WITH VERBALLY, PT STATED UNDERSTATNDING. PIV REMOVED.
--- NOTE | 2019-04-06 08:51 | MORECARE ---
CASE MANAGEMENT DISCHARGE SUMMARY PATIENT: NICOL BERRIOS SR UNIT: [id number] ADM DATE: 04/04/19 AGE: 68 : 51 SEX: M ROOM/BED: D.2123 AUTHOR: FLOR GARDNER PHYSICIAN: REFERRING PHYSICIAN: GIUSEPPE FLEMING MD DATE OF SERVICE: 04/06/19 Discharge Plan Patient Name: NICOL BERRIOS Facility: [facility]:[place] : 1950 Planned Disposition: Home Anticipated Discharge Date: 04/05/19 Discharge Date: 04/05/2019 Expected LOS: 1 Initial Reviewer: [email or web address] Initial Review Date: 04/06/2019 Generated: 04/06/19 9:51 am Patient Name: NICOL BERRIOS Page [id number] at 0851 All edits/amendments must be made on the electronic document DICTATION DATE: 04/06/19 0851 WELL SERVICING RIG OPERATOR: ED 04/06/19 0851 RPT#: [id number] DC DATE:04/05/19 STATUS: DIS IN [facility] [address] [place] [address] END OF REPORT
== END 2019-04-05 19:50 | disposition home or self-care (01) ==
LOC: D.ER 19:12 → D.M2 21:44 → OBSVTIME 21:44 → D.M2 04-05 19:50
PROVIDERS: Emergency Medicine; Internal Medicine Interventional Cardiology; Internal Medicine Nephrology; ADMIT Family Medicine; ATTEND Family Medicine
DX: I24.9 Acute ischemic heart disease, unspecified (principal); E11.9 Type 2 diabetes mellitus without complications; I10 Essential (primary) hypertension; E78.5 Hyperlipidemia, unspecified; I25.110 Atherosclerotic heart disease of native coronary artery with unstable angina pectoris; D64.9 Anemia, unspecified; M19.90 Unspecified osteoarthritis, unspecified site
CPT/HCPCS: 93458; C9600

== ENCOUNTER 2019-09-25 04:58 | Emergency (ER) | payer MEDICARE ==
[~2019-09-25] VITALS: Ht 185.4 cm; Wt 120.5 kg
[~2019-09-25 04:58] MED LIST changes: +HYDROCHLOROTH12.5 M1 PO; +NITROSTAT0.4 MG SL
[2019-09-25 05:05] VITALS: Ht 185.4 cm; Wt 120.5 kg
[2019-09-25] MEDS ORDERED: HYDROCODONE-IB1 EAC3 PO (07:05)
[2019-09-25 07:25] VITALS: BP 150/92
== END 2019-09-25 07:26 | disposition home or self-care (01) ==
LOC: D.ER 04:58
DX: M17.11 Unilateral primary osteoarthritis, right knee (principal); I10 Essential (primary) hypertension; I25.2 Old myocardial infarction; E11.9 Type 2 diabetes mellitus without complications; J45.909 Unspecified asthma, uncomplicated; Z79.84 Long term (current) use of oral hypoglycemic drugs; M25.561 Pain in right knee

== ENCOUNTER 2019-10-11 04:48 | Inpatient (IN) | payer MEDICARE ==
[~2019-10-11] VITALS: Ht 185.4 cm; Wt 120.2 kg
[~2019-10-11 04:48] MED LIST changes: +HYDROCODONE-IB1 EAC3 PO
[2019-10-11 05:29] LABS: BASOPHILS 0.2 % (0-2); EOSINOPHILS 1.7 % (0-7); HEMOGLOBIN 11.6 g/dL (13.5-17.5); IMMATURE GRANULOCYTES 0.6 % (0-5); LYMPHOCYTES 43.3 % (15-50); MCH 28.2 pg (26.0-34.0); MCHC 32.2 g/dL (31.0-37.0); MCV 87.4 fL (80.0-100.0); MEAN PLATELET VOLUME 8.8 fL (7.4-10.4); MONOCYTES 7.9 % (2-11); NEUTROPHILS 46.3 % (40-80); PLATELET COUNT 261 10x3/uL (130-400); RBC 4.12 10x6/uL (4.20-6.10); RDW 15.9 % (11.5-14.5); WBC 5.2 10x3/uL (4.8-10.8)
[2019-10-11 05:30] VITALS: BP 148/81
[2019-10-11 05:49] LABS: APTT 28.9 SECONDS (22.8-39.4); INR 0.94 (0.85-1.17); PROTIME 12.6 SECONDS (11.6-15.0)
[2019-10-11 05:50] LABS: D-DIMER-QUANTITATIVE < 0.27 ug/mLFEU (0.20-0.54)
[2019-10-11 05:52] LABS: ANION GAP 10.4 mmol/L (8-16); CALCIUM 8.6 mg/dL (8.5-10.1); CARBON DIOXIDE 28.6 mmol/L (21.0-32.0); CREATININE - SERUM 1.2 mg/dL (0.6-1.3)
[2019-10-11 06:02] LABS: ALBUMIN 3.5 g/dL (3.4-5.0); BILIRUBIN - TOTAL 0.3 mg/dL (0.2-1.3); C-REACTIVE PROTEIN 2.1 mg/dL (0.0-0.9); MAGNESIUM - SERUM 1.8 mg/dL (1.8-2.4); PROTEIN - SERUM 7.5 g/dL (6.4-8.2); TROPONIN-I 0.051 ng/mL (0.000-0.060)
--- NOTE | 2019-10-11 07:06 | NUR ---
1500 ML EMPTIED FROM URINAL AT THIS TIME.
[2019-10-11 08:00] VITALS: BP 174/106
[2019-10-11] MEDS ORDERED: PLAVIX75 MG PO (08:39)
[2019-10-11] MEDS ORDERED: PIOGLITAZONE15 MG PO (08:40)
[2019-10-11] MEDS ORDERED: GLUCOPHAGE500 MG PO (08:43)
[2019-10-11] MEDS ORDERED: GLUCOPHAGE1000 MG PO (08:44)
[2019-10-11] MEDS ORDERED: NORVASC10 MG PO (08:45)
[2019-10-11 12:25] VITALS: BP 174/106; BP 179/92; BMI 35.0
[2019-10-11 14:51] VITALS: Ht 185.4 cm; Wt 120.2 kg
[2019-10-11 16:56] VITALS: BP 128/77
--- NOTE | 2019-10-11 19:00 | NUR ---
REPORT GIVEN BY MED SURG NURSE. AT THIS TIME I EXPLAINED THAT I WOULD BE BACK DO TO A FULL ASSESSMENT IN THE NEXT LITTLE BIT.
[2019-10-11 20:00] VITALS: BP 154/89
--- NOTE | 2019-10-11 20:30 | NUR ---
ASSESSMENT COMPLETED. PT IS SITTING UP IN BED. HE HAS O2 AT 2L ON VIA NC. HE IS NOT SOB AT THIS TIME. SKIN IS WARM AND DRY. HEART SOUND WNL, LUNGS HAVE CRACKLES THROUGHOUT, BOWEL SOUNDS HEARD. HE HAS AN IV SL IN THE LEFT FOREARM. HE HAS NO C/O CHEST PAIN. HE ASKED FOR FRESH ICE WATER AND THIS WAS DELIVERED. HE HAS AN IS IN HIS ROOM. I INSTRUCTED HIM HOW TO USE THIS. I WATCHED HIM DO THIS 10 TIMES. THE HIGHEST HE GOT ON THE METER IS 2000. HE WENT ALONG THE NUMBERS STARTED DROPPING. I TOLD HIM THAT HE NEEDS TO DO THIS 10 TIMES EVERY HOUR HE IS AWAKE. PT IS DIABETIC AND GETS BS ACHS. PT HAS NO C/O OR NEEDS AT THIS TIME. PT CALL LIGHT IS WITHIN REACH AND 2 SIDERAILS UP.PT IS AMBULATORY TO THE BR BUT USES HIS URINAL MOSTLY.
--- NOTE | 2019-10-11 22:00 | NUR ---
PT IS RESTING WELL WITHOUT C/O OR NEEDS. LIGHTS OUT.
--- NOTE | 2019-10-11 23:51 | NUR ---
BLOOD SUGAR CHECKED. RESULTS 116. NO INSULIN GIVEN PER PROTOCOL. WHEN I WALKED IN THE ROOM PT WAS LYING ALMOST FLAT IN BED. HE HAD TAKEN HIS O2 OFF B/C HE SAID HE HAD A HEADACHE. I TOOK HIS VS. HIS O2 LEVEL VARIED FROM 93-100. BP WAS 145/90 PULSE 88 AND RESPIRATIONS 20. I HAD TOLD HIM ON A PREVIOUS VISIT TO HIS ROOM THAT WHEN HE SLEPT HE NEEDED TO PUT THE HEAD OF HIS BED UP SO HE COULD BREATHE BETTER. HE DIDN'T DO THIS. HE WAS TALKING ABOUT BEING SOB, HE ASKED FOR PEANUT BUTTER AND CRACKERS. THESE WERE BROUGHT TO HIM WELL FRESH ICE WATER. WHEN I LEFT THE ROOM THE HOB WAS AT 45 DEGREES AND PT WAS SITTING ON THE SIDE OF THE BED EATING.
[2019-10-12] VITALS: BP 145/90
--- NOTE | 2019-10-12 01:30 | NUR ---
PT IS RESTING QUIETLY. HE IS LAYING ON HIS LEFT SIDE SLEEPING VERY PEACEFULLY. RESPIRATIONS EVEN AND NON LABORED. HOB IS ELEVATED AND ROOM IS COOL.
--- NOTE | 2019-10-12 03:30 | NUR ---
PT CONT. TO REST QUIETLY IN HIS ROOM. HIS RESP ARE EVEN AND NON LABORED. ROOM IS VERY COOL AND HOB IS UP 45 DEGREES.
[2019-10-12 04:00] VITALS: BP 148/82
--- NOTE | 2019-10-12 05:15 | NUR ---
IN PT ROOM TO GIVE MEDS. HE IS SITTING ON THE SIDE OF THE BED. HE IS HAVING NO PROBLEMS BREATHING. WHEN I WALK IN HE TELLS ME HE DIDN'T SLEEP ANY LAST NIGHT AND HE WAS GASPING FOR BREATH. I LAUGHED AND TOLD HIM HE REALLY SLEPT LIKE A BABY. I ASKED HIM TO THINK ABOUT IT AND HE WASN'T SOB WHILE WE WERE TALKING. HE LAUGHED THEN. HE WANTED TO TALK POLITICS WHICH I SAID I PROBABLY SHOULDN'T. HE HAD A GOOD NIGHT DISPITE WHAT KIND HE THINKS HE HAD.
[2019-10-12 06:04] LABS: BASOPHILS 0.2 % (0-2); EOSINOPHILS 1.8 % (0-7); HEMATOCRIT 39.8 % (42.0-54.0); HEMOGLOBIN 12.7 g/dL (13.5-17.5); IMMATURE GRANULOCYTES 0.5 % (0-5); LYMPHOCYTES 42.4 % (15-50); MCHC 31.9 g/dL (31.0-37.0); MCV 87.7 fL (80.0-100.0); MONOCYTES 9.5 % (2-11); NEUTROPHILS 45.6 % (40-80); PLATELET COUNT 287 10x3/uL (130-400); RBC 4.54 10x6/uL (4.20-6.10); RDW 15.8 % (11.5-14.5)
[2019-10-12 06:28] LABS: ALBUMIN 3.8 g/dL (3.4-5.0); ANION GAP 10.7 mmol/L (8-16); BILIRUBIN - TOTAL 0.28 mg/dL (0.2-1.3); CALCIUM 9.5 mg/dL (8.5-10.1); CARBON DIOXIDE 30.3 mmol/L (21.0-32.0); CREATININE - SERUM 1.2 mg/dL (0.6-1.3); PROTEIN - SERUM 7.9 g/dL (6.4-8.2)
--- NOTE | 2019-10-12 07:48 | NUR ---
HE IS WAKE, ALERT, TALKING. NO OXYGEN ON, NO SOB AT THIS TIME. NO C/O PAIN. THE CALL LIGHT IS WITHIN REACH.
[2019-10-12 08:00] VITALS: BP 157/79
[2019-10-12 11:59] VITALS: BP 134/54
--- NOTE | 2019-10-12 15:08 | NUR ---
NEW IV TO THE LEFT INNER ARM, 22 G.
[2019-10-12 16:58] VITALS: BP 144/94
--- NOTE | 2019-10-12 19:15 | NUR ---
REPORT GIVEN BY KEISHA BACON
--- NOTE | 2019-10-12 20:30 | NUR ---
IN PT ROOM FOR MEDS. HE IS DOING MUCH BETTER TODAY. CRACKLES BARELY HEARD IN LUNGS. PT IS NOT COUGHING NOW. WHEN I ENTERED PT ROOM HE WAS SLEEPING WITH NO SIGNS OF RESPIRATORY DISTRESS. RESP. EVEN AND UNLABORED. HEART SOUNDS WNL, SOME CRACKLES HEARD USAMA. IN THE LEFT LOWER BASE. PT IS VOIDING WELL. HS BS TAKEN WITH RESULTS 218. PT RECEIVED 4 UNITS OF INSULIN SQ IN THE BACK OF THE RIGHT ARM. NO C/O OR NEEDS AT THIS TIME.
[2019-10-12 21:16] VITALS: BP 158/83
[2019-10-13] VITALS: BP 141/88
--- NOTE | 2019-10-13 02:33 | NUR ---
PT IS RESTING QUIETLY. RESPIRATIONS ARE EVEN AND UNLABORED.
[2019-10-13 04:00] VITALS: BP 116/53
[2019-10-13 05:35] LABS: BASOPHILS 0.2 % (0-2); EOSINOPHILS 2.9 % (0-7); HEMATOCRIT 41.8 % (42.0-54.0); HEMOGLOBIN 13.5 g/dL (13.5-17.5); IMMATURE GRANULOCYTES 0.2 % (0-5); LYMPHOCYTES 48.2 % (15-50); MCH 28.3 pg (26.0-34.0); MCHC 32.3 g/dL (31.0-37.0); MCV 87.6 fL (80.0-100.0); MEAN PLATELET VOLUME 9.1 fL (7.4-10.4); MONOCYTES 9.1 % (2-11); NEUTROPHILS 39.4 % (40-80); PLATELET COUNT 293 10x3/uL (130-400); RBC 4.77 10x6/uL (4.20-6.10); RDW 15.8 % (11.5-14.5); WBC 5.5 10x3/uL (4.8-10.8)
[2019-10-13 06:00] LABS: ALBUMIN 3.9 g/dL (3.4-5.0); ANION GAP 13.5 mmol/L (8-16); BILIRUBIN - TOTAL 0.35 mg/dL (0.2-1.3); CALCIUM 9.5 mg/dL (8.5-10.1); CARBON DIOXIDE 30.3 mmol/L (21.0-32.0); CREATININE - SERUM 1.1 mg/dL (0.6-1.3); POTASSIUM - SERUM 3.8 mmol/L (3.5-5.1); PROTEIN - SERUM 8.2 g/dL (6.4-8.2)
--- NOTE | 2019-10-13 06:52 | NUR ---
PT HAD A GOOD NIGHT. HE SLEPT WELL AND USED NO O2 DURING THE NIGHT. BS THIS MORNING WAS 157 AND HE RECEIVED 2 UNITS OF INSULIN
--- NOTE | 2019-10-13 07:56 | NUR ---
HE IS SLEEPING, AROUSES TO MY VOICE. HE STATES HE CAN BREATHE BETTER THIS MORNING, NO SOB, DENIES ANY PAIN. THE CALL LIGHT IS WITHIN REACH.
[2019-10-13 08:00] VITALS: BP 147/81
[2019-10-13 11:51] VITALS: BP 120/60
[2019-10-13] MEDS ORDERED: MUCINEX600 MG PO (13:34)
[2019-10-13] MEDS ORDERED: OMNICEF300 MG PO (13:34)
[2019-10-13] MEDS ORDERED: TESSALON PERLE100 MG PO (13:34)
[2019-10-13] MEDS ORDERED: AZITHROMYCIN500 MG PO (13:34)
--- NOTE | 2019-10-13 13:48 | NUR ---
Nutrition follow-up: Diet: ADA consistent CHO PO intake 75-100% of all meals Labs: Glucose: 218, 159, 157, 253 Meds: glucotrol, SS insulin Wt: 265# PO intake very good at this time Will continue to provide food choices and honor food preferences. RDN following.
--- NOTE | 2019-10-13 15:01 | MORECARE ---
CASE MANAGEMENT DISCHARGE SUMMARY PATIENT: NICOL BERRIOS UNIT: [id number] ADM DATE: 10/12/19 AGE: 68 : 51 SEX: M ROOM/BED: D.2233 AUTHOR: KENDRADOC PHYSICIAN: REFERRING PHYSICIAN: FLAVIA LAO MD DATE OF SERVICE: 10/13/19 Discharge Plan Patient Name: NICOL BERRIOS Facility: [facility]:[place] : 1950 Planned Disposition: Anticipated Discharge Date: Discharge Date: Expected LOS: Initial Reviewer: [id number] Initial Review Date: 10/11/2019 Generated: 10/13/19 4:00 pm Comments DCP- Discharge Planning Updated by [id number]: Alicia Pereira on 10/13/19 1:[address] Patient Name: NICOL BERRIOS Admission Status: ER Accout number: [id number] Admission Date: 10-12-2019 : 1950 Admission Diagnosis: Attending: FLAVIA LAO Current LOS: 1 Anticipated DC Date: Planned Disposition: Primary Insurance: [employer] MEDICARE PPO or HMO Discharge Planning Comments: CM met with patient at bedside after explaining CM role and obtaining verbal consent. CM discussed availability / needs of home health, REHAB and medical equipment. PATIENT DENIES ANY DC NEEDS. ANTICIPATES DC TO HOME TODAY. CM TO FOLLOW AND ASSIST NEEEDED. IMM SIGNED. Reception Specialist: Alicia Pereira DCPIA - Discharge Planning Initial Assessment Updated by [email or web address]: Alicia Pereira on 10/13/19 2:53 pm * Is the patient Alert and Oriented? Yes * PCP SARAH * [facility] * Preadmission Environment Home with Family * ADLs Independent * Other Equipment 02, NEBS, DOESN'T KNOW NAME OF COMPANY * Community resources currently utilized None * Additional services required to return to the preadmission environment? No * Can the patient safely return to the preadmission environment? Yes * Has this patient been hospitalized within the prior 30 days at any hospital? No Coverage Notice Reviewer: [id number] - Alicia Pereira Notice Issued Date-Time: 10/11/2019 17:59 Notice Type: Medicare Outpatient Observation Notice Notice Delivered To: Relationship to Patient: Manager Of Tires Sales Name: Delivery Method: - Norma Days: Prior Verbal Notification: Recipient Understood Notice: Recipient Signature: Med Rec Note Co-signed by Attending: Coverage Notice Comment: Reviewer: [email or web address] Elijah Pereira Notice Issued Date-Time: 10/13/2019 14:58 Notice Type: IM Discharge Notice Notice Delivered To: Patient Relationship to Patient: Manager Of Tires Sales Name: Delivery Method: HAND - Hand Delivered Norma Days: Prior Verbal Notification: Recipient Understood Notice: Yes Recipient Signature: Yes Med Rec Note Co-signed by Attending: Coverage Notice Comment: Patient Name: NICOL BERIROS Page [phone] at 1501 All edits/amendments must be made on the electronic document DICTATION DATE: 10/13/191499 SIGNS CLEANER: ED 10/13/19 1500 RPT#: [id number] DC DATE: STATUS: ADM IN [facility] [address] [place] [address] END OF REPORT
--- NOTE | 2019-10-13 16:07 | NUR ---
IV REMOVED, PAPERWORK GONE OVER WITH, QUESTIONS ANSWERED. TAKEN DOWNSTAIRS VIA WHEELCHAIR.
--- NOTE | 2019-10-13 16:28 | MORECARE ---
CASE MANAGEMENT DISCHARGE SUMMARY PATIENT: NICOL BERRIOS UNIT: [id number] ADM DATE: 10/12/19 AGE: 68 : 51 SEX: M ROOM/BED: D.2233 AUTHOR: KENDRADOC PHYSICIAN: REFERRING PHYSICIAN: FLAVIA LAO MD DATE OF SERVICE: 10/13/19 Discharge Plan Patient Name: NICOL BERRIOS Facility: [facility]:[place] : 1950 Planned Disposition: Anticipated Discharge Date: Discharge Date: 10/13/2019 Expected LOS: Initial Reviewer: [email or web address] Initial Review Date: 10/11/2019 Generated: 10/13/19 5:28 pm Comments DCP- Discharge Planning Updated by [id number]: Alicia Pereira on 10/13/19 1:[address] Patient Name: NICOL BERRIOS Admission Status: ER Accout number: [id number] Admission Date: 10-12-2019 : 1950 Admission Diagnosis: Attending: FLAVIA LAO Current LOS: 1 Anticipated DC Date: Planned Disposition: Primary Insurance: [employer] MEDICARE PPO or HMO Discharge Planning Comments: CM met with patient at bedside after explaining CM role and obtaining verbal consent. CM discussed availability / needs of home health, REHAB and medical equipment. PATIENT DENIES ANY DC NEEDS. ANTICIPATES DC TO HOME TODAY. CM TO FOLLOW AND ASSIST NEEEDED. IMM SIGNED. Trade Recruiter: Alicia Pereira DCPIA - Discharge Planning Initial Assessment Updated by [id number]: Alicia Pereira on 10/13/19 2:53 pm * Is the patient Alert and Oriented? Yes * PCP SARAH * [facility] * Preadmission Environment Home with Family * ADLs Independent * Other Equipment 02, NEBS, DOESN'T KNOW NAME OF COMPANY * Community resources currently utilized None * Additional services required to return to the preadmission environment? No * Can the patient safely return to the preadmission environment? Yes * Has this patient been hospitalized within the prior 30 days at any hospital? No Coverage Notice Reviewer: [id number] - Alicia Pereira Notice Issued Date-Time: 10/11/2019 17:59 Notice Type: Medicare Outpatient Observation Notice Notice Delivered To: Relationship to Patient: Senior Rd Engineer Name: Delivery Method: - Norma Days: Prior Verbal Notification: Recipient Understood Notice: Recipient Signature: Med Rec Note Co-signed by Attending: Coverage Notice Comment: Reviewer: [email or web address] Elijah Pereira Notice Issued Date-Time: 10/13/2019 14:58 Notice Type: IM Discharge Notice Notice Delivered To: Patient Relationship to Patient: Senior Rd Engineer Name: Delivery Method: HAND - Hand Delivered Norma Days: Prior Verbal Notification: Recipient Understood Notice: Yes Recipient Signature: Yes Med Rec Note Co-signed by Attending: Coverage Notice Comment: Last DP export: 10/13/19 2:01 p Patient Name: NICOL BERRIOS Page 94040 at 1628 All edits/amendments must be made on the electronic document DICTATION DATE: 10/13/191627 WOODYARD OPERATOR: ED 10/13/198 RPT#: [id number] DC DATE:10/13/19 STATUS: DIS IN [facility] [address] [place] [address] END OF REPORT
--- NOTE | 2019-10-14 14:52 | EC ---
PATIENT:NICOL BERRIOS SR DATE OF SERVICE: 10/11/19 SEX: M MEDICAL RECORD: [id number] DATE OF : [birth year] LOCATION:[facility] AGE OF PATIENT: 68 ADMISSION DATE: 10/12/19 REFERRING PHYSICIAN: INTERPRETING PHYSICIAN: GIUSEPPE LUCAS MD ECHOCARDIOGRAM REPORT ECHO CHARGES 4 ECHO COMPLETE Date: 10/11/19 CLINICAL DIAGNOSIS: SOB ECHOCARDIOGRAPHIC MEASUREMENTS (adult normal given) AC root (d.<3.7cm) 3.2 cm LV Septum d (<1.2 cm> 1.0 cm Valve Excursion 1.1 cm LV Septum (systole) 1.1 cm Left Atria (s.<4.0cm> 3.5 cm LVPW d(<1.2cm) 1.1 cm RV (d.<2.3cm) 2.3 cm LVPW (sytole) 1.2 cm LV diastole(<5.6CM) 7.6 cm MV E-F(>70mm/sec) cm LV systole 6.7 cm LVOT Diameter 2.0 cm MV exc.(>10mm) cm Est.ejection fraction (50-75%) % DOPPLER: LVIT cm/sec A 79 cm/sec E 63 cm/sec LA cm/sec RVSP 18.0 mmHg LVOT 92 cm/sec AOP1/2T m/s Asc. Ao 133 cm/sec RVOT 67 cm/sec RA cm/sec PA 76 cm/sec AV Gradient Peak 7.0 mmHg AV Mean 4.1 mmHg AV Area 2.5 cm MV Gradient Peak 5.0 mmHg MV Mean 2.2 mmHg MV Area cm COMMENTS: Soapstoner: Elpidio [employer] Associate: 3 Dr. Bundy TAPE# PACS Pericardial Effusion N DATE OF SERVICE: Adequate 2D, color flow imaging, spectral Doppler, and M-Mode. No LVH. LV internal dimensions are dilated. LV appears to be mildly globally hypo with EF lower limits of normal, mildly reduced. Estimated EF 45% to 50%. Aortic valve is tricuspid. No evidence of stenosis by Doppler interrogation. Left atrium is normal at 3.5 cm. Mitral valve shows no prolapse. Trace MR. Right-sided chambers are grossly normal. Trace TR. ECHOCARDIOGRAM REPORT [id number] NICOL BERRIOS SR TRANSINT:[id number] Voice Confirmation ID: [id number] DOCUMENT ID: [id number] GIUSEPPE LUCAS MD at 1452 CC: [id number] DICTATION DATE: 10/12/19 1231 TECHNICAL TRANSLATOR: 10/12/19 1306 DIS IN 10/13/19 [id number] [place] [address]
== END 2019-10-13 16:09 | disposition home or self-care (01) | DRG 291 ==
LOC: D.ER 04:48 → OBSVTIME 05:41 → D.MS 05:41
PROVIDERS: Emergency Medicine; Family Medicine; ADMIT Family Medicine; ATTEND Family Medicine
DX: I11.0 Hypertensive heart disease with heart failure (principal); J96.01 Acute respiratory failure with hypoxia; J18.9 Pneumonia, unspecified organism; J98.11 Atelectasis; I16.0 Hypertensive urgency; I50.33 Acute on chronic diastolic (congestive) heart failure; E11.65 Type 2 diabetes mellitus with hyperglycemia; I25.10 Atherosclerotic heart disease of native coronary artery without angina pectoris; J45.909 Unspecified asthma, uncomplicated; E66.01 Morbid (severe) obesity due to excess calories; Z68.35 Body mass index [BMI] 35.0-35.9, adult; I08.1 Rheumatic disorders of both mitral and tricuspid valves

== ENCOUNTER → 2020-07-06 14:26 | Outpatient (CLI) | payer MEDICARE ==
[2019-10-11 14:51] VITALS: BMI 34.9
[~2020-07-06 14:26] MED LIST changes: +AZITHROMYCIN500 MG PO; +MUCINEX600 MG PO; +NORVASC10 MG PO; +OMNICEF300 MG PO; +PIOGLITAZONE15 MG PO; +TESSALON PERLE100 MG PO
--- NOTE | 2020-07-10 16:08 | EC ---
PATIENT:NICOL BERRIOS SR DATE OF SERVICE: 07/06/20 SEX: M MEDICAL RECORD: [id number] DATE OF : [birth year] LOCATION:D[facility] AGE OF PATIENT: 69 ADMISSION DATE: 07/06/20 REFERRING PHYSICIAN: INTERPRETING PHYSICIAN: GIUSEPPE LUCAS MD ECHOCARDIOGRAM REPORT ECHO CHARGES 4 ECHO COMPLETE Date: 07/06/20 CLINICAL DIAGNOSIS: HEART MURMUR ECHOCARDIOGRAPHIC MEASUREMENTS (adult normal given) AC root (d.<3.7cm) 3.3 cm LV Septum d (<1.2 cm> 1.3 cm Valve Excursion 1.6 cm LV Septum (systole) 1.6 cm Left Atria (s.<4.0cm> 3.8 cm LVPW d(<1.2cm) 1.5 cm RV (d.<2.3cm) 4.2 cm LVPW (sytole) 1.3 cm LV diastole(<5.6CM) 6.1 cm MV E-F(>70mm/sec) cm LV systole 5.1 cm LVOT Diameter 2.0 cm MV exc.(>10mm) 1.1 cm Est.ejection fraction (50-75%) % DOPPLER: LVIT cm/sec A 87.0 cm/sec E 39.0 cm/sec LA cm/sec RVSP 19 mmHg LVOT 108 cm/sec AOP1/2T m/s Asc. Ao 126 cm/sec RVOT 79 cm/sec RA cm/sec PA 118 cm/sec AV Gradient Peak 6.39 mmHg AV Mean 3.75 mmHg AV Area 2.7 cm MV Gradient Peak 4.61 mmHg MV Mean 1.77 mmHg MV Area cm COMMENTS: Sld Educational Aide: 2 LASHANDA OMON Slot Shift Supervisor: 3 Dr. Bundy TAPE# PACS Pericardial Effusion N DATE OF SERVICE: Adequate 2D, color-flow imaging, spectral Doppler, and M-Mode FINDINGS: LVH is present. LV internal dimensions are normal. Wall motion is normal. EF is greater than or equal to 55%. Aortic valve is sclerosed without evidence of stenosis by Doppler interrogation. Left atrium is normal at 3.8 cm. Mitral valve shows no prolapse. Trace MR. Right-sided chambers are grossly normal. Trace TR. ECHOCARDIOGRAM REPORT [id number] NICOL BERRIOS SR TRANSINT:[id number] Voice Confirmation ID: [id number] DOCUMENT ID: [id number] GIUSEPPE LUCAS MD at 1608 CC: [id number] DICTATION DATE: 07/07/20 1253 BOAT WORKER: 07/07/20 1557 [facility] CLI 07/06/20 [place] [id number] [place] [id number]
== END | disposition home or self-care (01) ==
LOC: D.HCCECHO 09:00
PROVIDERS: ATTEND Internal Medicine Interventional Cardiology
DX: R01.1 Cardiac murmur, unspecified (principal)